=== PATIENT | female | born 1980 | race Caucasian/White ===

== ENCOUNTER 2022-09-16 21:19 | Outpatient (REF) | payer OTHER, SELFPAY ==
[2022-09-19 22:06] LABS: Age Gdln ACOG Testing Note (.); HPV Aptima Negative (Negative); IGP, Aptima HPV, rfx 16/18,45 Note (.)
== END 2022-09-16 21:20 | disposition home or self-care (01) ==
LOC: LAB 21:19
PROVIDERS: Visit Provider Obstetrics & Gynecology
DX: Z12.4 Encounter for screening for malignant neoplasm of cervix (principal); Z11.51 Encounter for screening for human papillomavirus (HPV)
CPT/HCPCS: 87624; G0145

== ENCOUNTER 2023-02-16 09:23 | Outpatient (OUT) | payer OTHER, SELFPAY ==
--- NOTE | 2023-02-16 09:26 | US_ITS ---
The [address] [address] Patient Name: KADI RODRIGUEZ MRN: [id number] date: 1980 Sex: F Assigned Patient Location: US Current Patient Location: Accession/Order Number: [id number] Exam Date: 02/16/2023 09:30 Report Date: 02/16/2023 10:39 At the request of: CIARA DAVIS Procedure: US pelvis w/ transvaginal EXAMINATION: US pelvis w/ transvaginal HISTORY: Pelvic Pain In Female R10.2 COMPARISON: No relevant comparison available. FINDINGS: Transabdominal and transvaginal images The uterus is surgically absent The right ovary measures 3.0 x 2.7 x 2.9 cm. Heterogeneous nodule measuring 1.3 x 1.3 x 0.9 cm. Normal color Doppler flow in the ovary. Left ovary measures 2.0 x 1.9 cm. Normal color Doppler flow. No free fluid US/US pelvis w/ transvaginal IMPRESSION: 1.3 cm complex right ovarian cyst Electronically authenticated by: KARISSA DIAZ Date: 02/16/2023 10:39
== END 2023-02-16 09:24 | disposition home or self-care (01) ==
LOC: US 09:23
PROVIDERS: Visit Provider Obstetrics & Gynecology
DX: R10.2 Pelvic and perineal pain (principal); N83.291 Other ovarian cyst, right side
CPT/HCPCS: 76830; 76856

== ENCOUNTER 2024-02-25 18:45 | Outpatient (REF) | payer OTHER, SELFPAY ==
--- OUTSIDE RECORDS SUMMARY | 2024-02-25 18:49 | XMS_ITS | CCD ---
Author Organization [facility] Care Team Providers Care Family Counselor Name Role Phone MAGED CANTU Admitting Unavailable MAGED CANTU Attending Unavailable SELF, REFERRED Primary Care Unavailable SELF, REFERRED Referring Unavailable DE Procedure Practitioner Unavailab le MAGED CANTU Surgeon Unavailable MEREDITH MALDONADO Admitting Unavailable MEREDITH MALDONADO Attending Unavailable MEREDITH MALDONADO Consulting Unavailable MISC, DR DENIS Primary Care Unavailable ABDOUL MARINO Consulting Unavailable MISC, DR DENIS Primary Care Unavailable RYAN, DR URBINA Attending Unavailable RYAN, DR URBINA Consulting Unavailable RYAN, DR URBINA Admitting Unavailable RYAN, DR URBINA Attending Unavailable RYAN, DR URBINA Admitting Unavailable MISC, DR DENIS Primary Care Unavailable RYAN, DR URBINA Admitting Unavailable RYAN, DR URBINA Attending Unavailable MISC, DR DENIS Primary Care Unavailable MISC, DR DENIS Primary Care Unavailable RYAN, DR URBINA Admitting Unavailable RYAN, DR URBINA Attending Unavailable KARASIK, DR PURCELL Consulting Unavailable RYAN, DR URBINA Consulting Unavailable RYAN, DR URBINA Procedure Practitioner Unavailab simone AGUBOSIROBIN Myers Consulting Unavailable ELIDA VARGAS Consulting Unavailable LYNN MARTINEZ Consulting Unavailable RYAN, DR URBINA Admitting Unavailable MISC, DR DENIS Primary Care Unavailable RYAN, DR URBINA Attending Unavailable RYAN, DR URBINA Consulting Unavailable KARASIK, DR PURCELL Admitting Unavailable KARASIK, DR PURCELL Attending Unavailable KARASIK, DR PURCELL Consulting Unavailable MISC, DR DENIS Primary Care Unavailable Avoca, DR Carlin Consulting Unavailable CIARA KOCH Attending Unavailable Problems Active Problems Problem Classification Problem Date Documented Da te Episodic/Chronic Menstrual disorders (3 sources) Dysmenorrhea, unspecified; Translations: [DYSMENORRHEA UNSPECIFIED] Onset: 06-07-2021 Chronic Other female genital disorders (1 source) Unspecified dyspareunia; Translations: [UNSPECIFIED DYSPAREUNIA] Onset: 07-02-2021 Chronic Other female genital disorders (1 source) Abnormal uterine and vaginal bleeding, unspecified; Translations: [ABNORMAL UTERINE VAGINAL BLEED UNS] Onset: 07-02-2021 Chronic Other female genital disorders (1 source) Postcoital and contact bleeding; Translations: [POSTCOITAL AND CONTACT BLEEDING] Onset: 07-02-2021 Chronic Other screening for suspected conditions (not mental disorders or infectious disease) (8 sources) Encounter for screening for nutritional disorder; Translations: [Encounter for screening mammogram for malignant neoplasm of breast] Onset: 06-03-2021 Episodic Residual codes; unclassified (1 source) Family history of malignant neoplasm of ovary; Translations: [FAM HX MALIGNANT NEOPLASM OVARY] Onset: 12-05-2021 Episodic Residual codes; unclassified (1 source) Family history of malignant neoplasm of other organs or systems; Translations: [FAM HX MALIG NEOPLASM OTH ORGN/SYS] Onset: 12-05-2021 Episodic Unclassified (1 source) CONTACT W/AND (SUSP) EXPOS COVID-19; Translations: [CONTACT W/AND (SUSP) EXPOS COVID-19] Onset: 06-07-2021 Past or Other Problems Problem Classification Problem Date Documented Date Episodic/Chronic Abdominal pain (5 sources) Pelvic and perineal pain; Translations: [PELVIC AND PERINEAL PAIN] Onset: 02-09-2021 Episodic Immunizations and screening for infectious disease (1 source) Encounter for screening for human papillomavirus (HPV); Translations: [ENC SCREENING HUMAN PAPILLOMAVIRUS] Onset: 06-05-2021 Episodic Mood disorders (1 source) Emotional lability; Translations: [EMOTIONAL LABILITY] Onset: 07-02-2021 Episodic Other aftercare (1 source) Other nursing home (current) drug therapy; Translations: [OTH INTERMEDIATE CURRENT DRUG THERAPY] Onset: 07-02-2021 Episodic Other female genital disorders (1 source) Other specified conditions associated with female genital organs and menstrual cycle; Translations: [OTH SPEC COND FE GEN ORG MENST CYCL] Onset: 07-02-2021 Episodic Results Test Name Value Interpretation Reference Range Facility MG MAMM SCREEN 3D LO CADon 12-03-2021 MG MAMM SCREEN 3D LO CAD Patient: JENNIFER SANDEE L. Exam Date: 12/03/2021 : 1980 Gender:F Ordering : DR JAZZY CERRATO . Admission #: [id number] Family : Order #: [id number] CLICK HERE TO VIEW EXAM RADIOLOGY REPORT PROCEDURE: MAMMOGRAM SCREENING 3D BILATERAL CAD COMPARISON: None. INDICATIONS: Screening mammography Calculator Name NCI Breast Cancer Risk Assessment Tool 5 Year Breast Cancer Risk 0.50% Lifetime Breast Cancer Risk 9.00% Personal Breast Cancer No Personal Ovarian Cancer No Treatments None Family Cancers Sister with ovarian cancer at age 30; Grandmother-maternal with unknown cancer at age 75; Grandfather-paternal with bone cancer at age 92. LOCATION: [facility] BREAST COMPOSITION: Heterogeneously dense,which may obscure small masses. FINDINGS: DIAGNOSTIC CATEGORY 1--NEGATIVE. Scattered benign-appearing lymph nodes are present. RIGHT BREAST: No significant suspicious finding. LEFT BREAST: No significant suspicious finding. RECOMMENDATIONS: ROUTINE MAMMOGRAM AND CLINICAL EVALUATION IN 12 MONTHS. PLEASE NOTE: A NORMAL MAMMOGRAM DOES NOT EXCLUDE THE POSSIBILITY OF BREAST CANCER. A CLINICALLY SUSPICIOUS PALPABLE LUMP SHOULD BE BIOPSIED. Dictated by: Tesfaye Whiting MD on 12/04/2021 at 07:44 Approved by: Tesfaye Whiting MD on 12/04/2021 at 07:45 Normal [facility] CBC AUTO DIFFon 06-09-2021 BASO # 0.1 103/ul Normal 0.0-0.1 [facility] Comment on above: Performed By: #### B , CREA #### [facility] [address] [address] [address] Milind De Paz Basophils/100 WBC (Bld) 0.7 % Normal 0.2-2.0 [facility] Comment on above: Performed By: #### B UN, CREA #### [facility] [address] [address] [address] Milind De Paz EO # 0.3 103/ul Normal 0.0-0.7 [facility] Comment on above: Performed By: #### B UN, CREA #### [facility] [address] [address] [address] Milind De Paz Eosinophils/100 WBC (Bld) 3.6 % Normal 0.9-7.0 [facility] Comment on above: Performed By: #### B UN, CREA #### [facility] [address] [place] [address] Dr. Milind De Paz Erythrocyte distribution width (RBC) [Ratio] 12.1 % Normal 11.0-15.0 [facility] Comment on above: Performed By: #### B UN, CREA #### [facility] [address] [place] [address] Dr. Milind De Paz Hematocrit (Bld) [Volume fraction] 31.0 % Critically low 36.0-48.0 [facility] Comment on above: Performed By: #### B UN, CREA #### [facility] [address] [place] [address] Dr. Milind De Paz Hemoglobin (Bld) [Mass/Vol] 10.0 g/dL Critically low 12.0-16.0 [facility] Comment on above: Performed By: #### B UN, CREA #### [facility] [address] [place] [address] Dr. Milind De Paz IG # 0.03 10e3/ul Normal 0.00-0.03 [facility] Comment on above: Performed By: #### B UN, CREA #### [facility] [address] [place] [address] Dr. Milind De Paz IG % 0.3 % Normal 0.0-0.5 [facility] Comment on above: Performed By: #### B UN, CREA #### [facility] [address] [place] [address] Dr. Milind De Paz LYMPH # 2.7 103/ul Normal 1.2-3.8 [facility] Comment on above: Performed By: #### B UN, CREA #### [facility] [address] [place] [address] Dr. Milind De Paz Lymphocytes/100 WBC (Bld) 31.0 % Normal 20.5-60.0 [facility] Comment on above: Performed By: #### B UN, CREA #### [facility] [address] [place] [address] Dr. Milind De Paz MANUAL DIFF REQ NO Normal [facility] Comment on above: Performed By: #### B UN, CREA #### [facility] [address] [place] [address] Dr. Milind De Paz MCH (RBC) [Entitic mass] 30.7 pg Normal 26.7-34.0 [facility] Comment on above: Performed By: #### B UN, CREA #### [facility] [address] [place] [address] Dr. Milind De Paz MCHC (RBC) [Mass/Vol] 32.3 g/dL Normal 29.9-35.2 [facility] Comment on above: Performed By: #### B UN, CREA #### [facility] [address] [place] [address] Dr. Milind De Paz MCV (RBC) [Entitic vol] 95.1 fL Normal 81.0-99.0 [facility] Comment on above: Performed By: #### B UN, CREA #### [facility] [address] [place] [address] Dr. Milind De Paz MONO # 0.9 103/ul Critically high 0.3-0.8 [facility] Comment on above: Performed By: #### B UN, CREA #### [facility] [address] [place] [address] Dr. Milind De Paz Monocytes/100 WBC (Bld) 10.3 % Normal 1.7-12.0 [facility] Comment on above: Performed By: #### B UN, CREA #### [facility] [address] [place] [address] Dr. Milind De Paz NEUT # 4.7 103/ul Normal 1.4-6.5 [facility] Comment on above: Performed By: #### B UN, CREA #### [facility] [address] [place] [address] Dr. Milind De Paz Neutrophils/100 WBC (Bld) 54.1 % Normal 43.0-75.0 [facility] Comment on above: Performed By: #### B UN, CREA #### [facility] [address] [place] [address] Dr. Milind De Paz Platelet mean volume (Bld) [Entitic vol] 10.6 fL Normal 9.5-13.5 [facility] Comment on above: Performed By: #### B UN, CREA #### [facility] [address] [place] [address] Dr. Milind De Paz PLT 195 103/ul Normal 150-450 [facility] Comment on above: Performed By: #### B UN, CREA #### [facility] [address] [place] [address] Dr. Milind De Paz RBC 3.26 106/ul Critically low 4.20-5.40 [facility] Comment on above: Performed By: #### B UN, CREA #### [facility] [address] [place] [address] Dr. Milind De Paz WBC 8.7 103/ul Normal 4.0-11.0 [facility] Comment on above: Performed By: #### B UN, CREA #### [facility] [address] [place] [address] Dr. Milind De Paz BUNon 06-08-2021 Urea nitrogen [Mass/Vol] 9.0 mg/dL Normal 7.0-18.0 [facility] Comment on above: Performed By: #### B UN, CREA #### [facility] [address] [place] [address] Dr. Milind De Paz CBC AUTO DIFFon 06-08-2021 BASO # 0.0 103/ul Normal 0.0-0.1 [facility] Comment on above: Performed By: #### C BC #### [facility] [address] [place] [address] Dr. Milind De Paz Basophils/100 WBC (Bld) 0.2 % Normal 0.2-2.0 [facility] Comment on above: Performed By: #### C BC #### [facility] [address] [place] [address] Dr. Milind De Paz EO # 0.0 103/ul Normal 0.0-0.7 [facility] Comment on above: Performed By: #### C BC #### [facility] [address] [place] [address] Dr. Milind De Paz Eosinophils/100 WBC (Bld) 0.1 % Critically low 0.9-7.0 [facility] Comment on above: Performed By: #### C BC #### [facility] [address] [place] [address] Dr. Milind De Paz Erythrocyte distribution width (RBC) [Ratio] 11.8 % Normal 11.0-15.0 [facility] Comment on above: Performed By: #### C BC #### [facility] [address] [place] [address] Dr. Milind De Paz Hematocrit (Bld) [Volume fraction] 31.9 % Critically low 36.0-48.0 [facility] Comment on above: Performed By: #### C BC #### [facility] [address] [place] [address] Dr. Milind De Paz Hemoglobin (Bld) [Mass/Vol] 10.7 g/dL Critically low 12.0-16.0 [facility] Comment on above: Performed By: #### C BC #### [facility] [address] [place] [address] Dr. Milind De Paz IG # 0.05 10e3/ul Critically high 0.00-0.03 [facility] Comment on above: Performed By: #### C BC #### [facility] [address] [place] [address] Dr. Milind De Paz IG % 0.3 % Normal 0.0-0.5 [facility] Comment on above: Performed By: #### C BC #### [facility] [address] [place] [address] Dr. Milind De Paz LYMPH # 1.4 103/ul Normal 1.2-3.8 [facility] Comment on above: Performed By: #### C BC #### [facility] [address] [place] [address] Dr. Milind De Paz Lymphocytes/100 WBC (Bld) 9.7 % Critically low 20.5-60.0 [facility] Comment on above: Performed By: #### C BC #### [facility] [address] [place] [address] Dr. Milind De Paz MANUAL DIFF REQ NO Normal [facility] Comment on above: Performed By: #### C BC #### [facility] [address] [place] [address] Dr. Milind De Paz MCH (RBC) [Entitic mass] 30.6 pg Normal 26.7-34.0 [facility] Comment on above: Performed By: #### C BC #### [facility] [address] [place] [address] Dr. Milind De Paz MCHC (RBC) [Mass/Vol] 33.5 g/dL Normal 29.9-35.2 [facility] Comment on above: Performed By: #### C BC #### [facility] [address] [place] [address] Dr. Milind De Paz MCV (RBC) [Entitic vol] 91.1 fL Normal 81.0-99.0 [facility] Comment on above: Performed By: #### C BC #### [facility] [address] [place] [address] Dr. Milind De Paz MONO # 1.2 103/ul Critically high 0.3-0.8 [facility] Comment on above: Performed By: #### C BC #### [facility] [address] [place] [address] Dr. Milind De Paz Monocytes/100 WBC (Bld) 8.2 % Normal 1.7-12.0 [facility] Comment on above: Performed By: #### C BC #### [facility] [address] [place] [address] Dr. Milind De Paz NEUT # 12.2 103/ul Critically high 1.4-6.5 [facility] Comment on above: Performed By: #### C BC #### [facility] [address] [place] [address] Dr. Mliind De Paz Neutrophils/100 WBC (Bld) 81.5 % Critically high 43.0-75.0 [facility] Comment on above: Performed By: #### C BC #### [facility] [address] [place] [address] Dr. Milind De Paz Platelet mean volume (Bld) [Entitic vol] 10.5 fL Normal 9.5-13.5 [facility] Comment on above: Performed By: #### C BC #### [facility] [address] [place] [address] Dr. Milind De Paz PLT 220 103/ul Normal 150-450 [facility] Comment on above: Performed By: #### C BC #### [facility] [address] [place] [address] Dr. Milind De Paz RBC 3.50 106/ul Critically low 4.20-5.40 [facility] Comment on above: Performed By: #### C BC #### [facility] [address] [place] [address] Dr. Milind De Paz WBC 14.9 103/ul Critically high 4.0-11.0 [facility] Comment on above: Performed By: #### C BC #### [facility] [address] [place] [address] Dr. Milind De Paz CREATININEon 06-08-2021 Creatinine [Mass/Vol] 0.61 mg/dL Normal 0.52-1.04 [facility] Comment on above: Performed By: #### B JULIA, CREA #### [facility] [address] [place] [address] Dr. Milind De Paz EGFR-AF DUTCH >60 Normal >=60 [facility] Comment on above: Performed By: #### B UN, CREA #### [facility] [address] [place] [address] Dr. Milind De Paz EGFR-NON AF DUTCH >60 Normal >=60 [facility] Comment on above: Performed By: #### B UN, CREA #### [facility] [address] [place] [address] Dr. Milind De Paz CBC AUTO DIFFon 06-07-2021 BASO # 0.1 103/ul Normal 0.0-0.1 [facility] Comment on above: Performed By: #### C BC #### [facility] [address] [address] [address] Milind De Paz Basophils/100 WBC (Bld) 0.8 % Normal 0.2-2.0 [facility] Comment on above: Performed By: #### C BC #### [facility] [address] [place] [address] Dr. Milind De Paz EO # 0.2 103/ul Normal 0.0-0.7 [facility] Comment on above: Performed By: #### C BC #### [facility] [address] [place] [address] Dr. Milind De Paz Eosinophils/100 WBC (Bld) 3.0 % Normal 0.9-7.0 [facility] Comment on above: Performed By: #### C BC #### [facility] [address] [place] [address] Dr. Milind De Paz Erythrocyte distribution width (RBC) [Ratio] 11.8 % Normal 11.0-15.0 [facility] Comment on above: Performed By: #### C BC #### [facility] [address] [place] [address] Dr. Milind De Paz Hematocrit (Bld) [Volume fraction] 36.6 % Normal 36.0-48.0 [facility] Comment on above: Performed By: #### C BC #### [facility] [address] [place] [address] Dr. Milind De Paz Hemoglobin (Bld) [Mass/Vol] 12.3 g/dL Normal 12.0-16.0 [facility] Comment on above: Performed By: #### C BC #### [facility] [address] [place] [address] Dr. Milind De Paz IG # 0.01 10e3/ul Normal 0.00-0.03 [facility] Comment on above: Performed By: #### C BC #### [facility] [address] [place] [address] Dr. Milind De Paz IG % 0.1 % Normal 0.0-0.5 [facility] Comment on above: Performed By: #### C BC #### [facility] [address] [place] [address] Dr. Milind De Paz LYMPH # 1.9 103/ul Normal 1.2-3.8 [facility] Comment on above: Performed By: #### C BC #### [facility] [address] [place] [address] Dr. Milind De Paz Lymphocytes/100 WBC (Bld) 25.3 % Normal 20.5-60.0 [facility] Comment on above: Performed By: #### C BC #### [facility] [address] [place] [address] Dr. Milind De Paz MANUAL DIFF REQ NO Normal [facility] Comment on above: Performed By: #### C BC #### [facility] [address] [place] [address] Dr. Milind De Paz MCH (RBC) [Entitic mass] 31.0 pg Normal 26.7-34.0 [facility] Comment on above: Performed By: #### C BC #### [facility] [address] [place] [address] Dr. Milind De Paz MCHC (RBC) [Mass/Vol] 33.6 g/dL Normal 29.9-35.2 [facility] Comment on above: Performed By: #### C BC #### [facility] [address] [place] [address] Dr. Milind De Paz MCV (RBC) [Entitic vol] 92.2 fL Normal 81.0-99.0 [facility] Comment on above: Performed By: #### C BC #### [facility] [address] [place] [address] Dr. Milind De Paz MONO # 0.5 103/ul Normal 0.3-0.8 [facility] Comment on above: Performed By: #### C BC #### [facility] [address] [place] [address] Dr. Milind De Paz Monocytes/100 WBC (Bld) 6.8 % Normal 1.7-12.0 [facility] Comment on above: Performed By: #### C BC #### [facility] [address] [place] [address] Dr. Milind De Paz NEUT # 4.9 103/ul Normal 1.4-6.5 [facility] Comment on above: Performed By: #### C BC #### [facility] [address] [place] [address] Dr. Milind De Paz Neutrophils/100 WBC (Bld) 64.0 % Normal 43.0-75.0 [facility] Comment on above: Performed By: #### C BC #### [facility] [address] [place] [address] Dr. Milind De Paz Platelet mean volume (Bld) [Entitic vol] 10.2 fL Normal 9.5-13.5 [facility] Comment on above: Performed By: #### C BC #### [facility] [address] [place] [address] Dr. Milind De Paz PLT 257 103/ul Normal 150-450 [facility] Comment on above: Performed By: #### C BC #### [facility] [address] [place] [address] Dr. Milind De Paz RBC 3.97 106/ul Critically low 4.20-5.40 [facility] Comment on above: Performed By: #### C BC #### [facility] [address] [place] [address] Dr. Milind De Paz WBC 7.6 103/ul Normal 4.0-11.0 [facility] Comment on above: Performed By: #### C BC #### [facility] [address] [place] [address] Dr. Milind De Paz PREG QUANT HCGon 06-07-2021 HCG QUANT <1 Normal [facility] Comment on above: Performed By: #### B UN, CREA #### [facility] [address] [place] [address] Dr. Milind De Paz HCG RANGE SEE BELOW Normal [facility] Comment on above: Result Comment: 5-50 0-1 WEEK 40-300 1-2 WEEKS 100-1,000 2-3 WEEKS 500-6,000 3-4 WEEKS 5,000-200,000 1-2 MONTHS 10,000-100,000 2-3 MONTHS 3,000-50,000 2ND TRIMESTER 1,000-50,000 3RD TRIMESTER Performed By: #### B UN, CREA #### [facility] [address] [address] [address] Milind De Paz TYPE AND SCREENon 06-07-2021 TYPE AND SCREEN Negative Normal [facility] Comment on above: Performed By: #### B UN, CREA #### [facility] [address] [address] [address] Milind De Paz PAP ACOG PANEL 2: 30 to 65on 06-06-2021 . . Normal [facility] Comment on above: Result Comment: Perf ormed at: WB Performed By: #### B UN, CREA #### [facility] [address] [place] [address] Dr. Milind De Paz Age Gdln ACOG Testing - [facility] Comment on above: Performed By: #### B UN, CREA #### [facility] [address] [place] [address] Dr. Milind De Paz DIAGNOSIS: Comment Normal [facility] Comment on above: Result Comment: NEGA TIVE FOR INTRAEPITHELIAL LESION OR MALIGNANCY. Performed at: WB Performed By: #### B UN, CREA #### [facility] [address] [place] [address] Dr. Milind De Paz HPV Aptima Negative Normal Negative [facility] Comment on above: Result Comment: This nucleic acid amplification test detects fourteen high-risk HPV types (16,18,31,33,35,39,45,51,52,56,58,59,66,68) without differentiation. Performed at: =G Performed By: #### B UN, CREA #### [facility] [address] [place] [address] Dr. Milind De Paz Methodology: Comment Normal [facility] Comment on above: Result Comment: This liquid based ThinPrep(R) pap test was screened with the use of an image guided system. Performed at: WB Performed By: #### B UN, CREA #### [facility] [address] [place] [address] Dr. Milind De Paz Note: Comment Normal [facility] Comment on above: Result Comment: The Pap smear is a screening test designed to aid in the detection of premalignant and malignant conditions of the uterine cervix. It is not a diagnostic procedure and should not be used as the sole means of detecting cervical cancer. Both false-positive and false-negative reports do occur. . Performed at: WB Performed By: #### B UN, CREA #### [facility] [address] [address] [address] Milind De Paz Performed by: Comment Normal [facility] Comment on above: Result Comment: Magda Staton, Roofing Sales Representative (ASCP) Performed at: WB Performed By: #### B UN, CREA #### [facility] [address] [address] [address] Milind De Paz Specimen adequacy: Comment Normal [facility] Comment on above: Result Comment: Sati sfactory for evaluation. Endocervical and/or squamous metaplastic cells (endocervical component) are present. Performed at: WB Performed By: #### B UN, CREA #### [facility] [address] [address] [address] Milind De Paz [facility]08 SARS-CoV-2 (COVID-19) RNA FRIDA+probe Ql (Unsp spec) Not detected Normal NOT DETECTED [facility] Comment on above: Result Comment: This test is not yet approved or cleared by the [place] FDA. When there are no FDA-approved or cleared tests available, and other criteria are met, FDA can make tests available under an emergency access mechanism called an Emergency Use Authorization (EUA). The EUA for this test is supported by the [employer] of Health and Human Service's (HHS's) declaration that circumstances exist to justify the emergency use of in vitro diagnostics for the detection and/or diagnosis of the virus that causes COVID-19. This EUA will remain in effect (meaning this test can be used) for the duration of the COVID-19 declaration justifying emergency of IVDs, unless it is terminated or revoked by FDA (after which the test may no longer be used). When diagnostic testing is negative, the possibility of a false negative should be considered in the context of a patient's recent exposures and the presence of clinical signs and symptoms consistent with SARS-CoV-2. Performed By: #### C VDTB #### [facility] [address] [place] [address] Dr. Milind De Paz TYPE AND SCREENon 06-04-2021 TYPE AND SCREEN Negative Normal [facility] Comment on above: Performed By: #### B UN, CREA #### [facility] [address] [place] [address] Dr. Milind De Paz CHLAMYDIA/GONOCOCCUS FRIDA ( AB/URINE/PAPon 02-12-2021 Chlamydia trachomatis, FRIDA Negative Normal Negative [facility] Comment on above: Performed By: #### B UN, CREA #### [facility] [address] [place] [address] Dr. Milind De Paz Neisseria gonorrhoeae, FRIDA Negative Normal Negative [facility] Comment on above: Performed By: #### B UN, CREA #### [facility] [address] [place] [address] Dr. Milind De Paz CBC AUTO DIFFon 02-09-2021 BASO # 0.1 103/ul Normal 0.0-0.1 [facility] Comment on above: Performed By: #### B UN, CREA #### [facility] [address] [place] [address] Dr. Milind De Paz Basophils/100 WBC (Bld) 0.9 % Normal 0.2-2.0 [facility] Comment on above: Performed By: #### B UN, CREA #### [facility] [address] [place] [address] Dr. Milind De Paz EO # 0.2 103/ul Normal 0.0-0.7 [facility] Comment on above: Performed By: #### B UN, CREA #### [facility] [address] [place] [address] Dr. Milind De Paz Eosinophils/100 WBC (Bld) 2.6 % Normal 0.9-7.0 [facility] Comment on above: Performed By: #### B UN, CREA #### [facility] [address] [place] [address] Dr. Milind De Paz Erythrocyte distribution width (RBC) [Ratio] 11.6 % Normal 11.0-15.0 [facility] Comment on above: Performed By: #### B UN, CREA #### [facility] [address] [place] [address] Dr. Milind De Paz Hematocrit (Bld) [Volume fraction] 35.9 % Critically low 36.0-48.0 [facility] Comment on above: Performed By: #### B UN, CREA #### [facility] [address] [place] [address] Dr. Milind De Paz Hemoglobin (Bld) [Mass/Vol] 11.8 g/dL Critically low 12.0-16.0 [facility] Comment on above: Performed By: #### B UN, CREA #### [facility] [address] [place] [address] Dr. Milind De Paz IG # 0.01 10e3/ul Normal 0.00-0.03 [facility] Comment on above: Performed By: #### B UN, CREA #### [facility] [address] [place] [address] Dr. Milind De Paz IG % 0.1 % Normal 0.0-0.5 [facility] Comment on above: Performed By: #### B UN, CREA #### [facility] [address] [place] [address] Dr. Milind De Paz LYMPH # 2.8 103/ul Normal 1.2-3.8 [facility] Comment on above: Performed By: #### B UN, CREA #### [facility] [address] [place] [address] Dr. Milind De Paz Lymphocytes/100 WBC (Bld) 35.9 % Normal 20.5-60.0 [facility] Comment on above: Performed By: #### B UN, CREA #### [facility] [address] [place] [address] Dr. Milind De Paz MANUAL DIFF REQ NO Normal [facility] Comment on above: Performed By: #### B UN, CREA #### [facility] [address] [place] [address] Dr. Milind De Paz MCH (RBC) [Entitic mass] 30.3 pg Normal 26.7-34.0 [facility] Comment on above: Performed By: #### B UN, CREA #### [facility] [address] [place] [address] Dr. Milind De Paz MCHC (RBC) [Mass/Vol] 32.9 g/dL Normal 29.9-35.2 [facility] Comment on above: Performed By: #### B UN, CREA #### [facility] [address] [place] [address] Dr. Milind De Paz MCV (RBC) [Entitic vol] 92.1 fL Normal 81.0-99.0 [facility] Comment on above: Performed By: #### B UN, CREA #### [facility] [address] [place] [address] Dr. Milind De Paz MONO # 0.8 103/ul Normal 0.3-0.8 [facility] Comment on above: Performed By: #### B UN, CREA #### [facility] [address] [place] [address] Dr. Milind De Paz Monocytes/100 WBC (Bld) 10.1 % Normal 1.7-12.0 [facility] Comment on above: Performed By: #### B UN, CREA #### [facility] [address] [place] [address] Dr. Milind De Paz NEUT # 3.9 103/ul Normal 1.4-6.5 [facility] Comment on above: Performed By: #### B UN, CREA #### [facility] [address] [place] [address] Dr. Milind De Paz Neutrophils/100 WBC (Bld) 50.4 % Normal 43.0-75.0 [facility] Comment on above: Performed By: #### B UN, CREA #### [facility] [address] [place] [address] Dr. Milind De Paz Platelet mean volume (Bld) [Entitic vol] 10.5 fL Normal 9.5-13.5 [facility] Comment on above: Performed By: #### B UN, CREA #### [facility] [address] [address] [address] Milind De Paz PLT 273 103/ul Normal 150-450 [facility] Comment on above: Performed By: #### B UN, CREA #### [facility] [address] [address] [address] Milind De Paz RBC 3.90 106/ul Critically low 4.20-5.40 [facility] Comment on above: Performed By: #### B UN, CREA #### [facility] [address] [address] [address] Milind De Paz WBC 7.8 103/ul Normal 4.0-11.0 [facility] Comment on above: Performed By: #### B UN, CREA #### [facility] [address] [address] [address] ABD/PELV W CONon 02-10-[address] ABD/PELV W CON EXAM: CT ABD/PELV W CON 02/09/2021 1:58 AM EST [id number] CLINICAL STATEMENT: UNSPECIFIED ABDOMINAL PAIN COMPARISON: 06/14/2020 TECHNIQUE: Helically acquired images were obtained of the abdomen and pelvis following 100 cc of Omnipaque 300 IV contrast. No oral contrast was administered. Dose reduction techniques were achieved by using automated exposure control and/or adjustment of mA and/or kV according to patient size and/or use of iterative reconstruction technique. AEC is utilized. 2-D reconstructed images are provided. FINDINGS: Multiple hepatic lobe hemangioma on the right measures 3 cm and 2.7 cm. Contracted gallbladder. The upper abdominal solid organs are unremarkable. There is no bowel obstruction or free air. There is no ascites. There is no evidence of aortic aneurysm or dissection. The celiac artery, superior mesenteric artery, and superior mesenteric vein are grossly patent. There is no retroperitoneal adenopathy. Bilateral gonadal vein coil streak artifact. There is no appendicitis or diverticulitis. There are no pelvic masses or loculated fluid collections. 2.5 cm right renal cortical cyst. The uterus and bladder unremarkable. The lung bases are clear. There are no destructive bone lesions identified. IMPRESSION: No acute abnormality. Multiple hepatic lobe hemangioma on the right measures 3 cm and 2.7 cm. FOLLOW-UP: Follow-up as clinically indicated. Electronically authenticated by: ABDOUL MARINO Date: 2021-02-09 03:16 Normal [facility] CULTURE VAG/CERVIXon 021 CULTURE VAG/CERVIX Culture Observations : NORMAL VAGINAL DAVID Normal [facility] Comment on above: Performed By: #### B JULIA CRERomina #### [facility] [address] [place] [address] Dr. Milind De Paz ER URINE PROFILEon 1 Bilirubin Ql (U) Negative Normal NEGATIVE [facility] Comment on above: Performed By: #### E RUR PREGU, UMICRO #### [facility] [address] [place] [address] Dr. Milind De Paz Clarity (U) CLEAR Normal CLEAR [facility] Comment on above: Performed By: #### Ana Luisa RUR PREGU, UMICRO #### [facility] [address] [place] [address] Dr. Milind De Paz Color (U) YELLOW Normal YELLOW [facility] Comment on above: Performed By: #### Ana Luisa RUR PREGU, UMICRO #### [facility] [address] [place] [address] Dr. Milind DOWLING A micrscopic examination will be performed if indicated. Normal [facility] Comment on above: Performed By: #### E RUR PREGU, UMICRO #### [facility] [address] [place] [address] Dr. Milind De Paz Glucose Ql (U) Negative Normal NEGATIVE [facility] Comment on above: Performed By: #### E RUR, PREGU, UMICRO #### [facility] [address] [place] [address] Dr. Milind De Paz Hemoglobin Ql (U) MODERATE Abnormal NEGATIVE [facility] Comment on above: Performed By: #### E RUR, PREGU, UMICRO #### [facility] [address] [place] [address] Dr. Milind De Paz Ketones Ql (U) TRACE Abnormal NEGATIVE [facility] Comment on above: Performed By: #### E RUR, PREGU, UMICRO #### [facility] [address] [place] [address] Dr. Milind De Paz LEUKOCYTES Negative Normal NEGATIVE [facility] Comment on above: Performed By: #### E RUR, PREGU, UMICRO #### [facility] [address] [address] [address] Milind De Paz Nitrite Ql (U) Negative Normal NEGATIVE [facility] Comment on above: Performed By: #### E RUR, PREGU, UMICRO #### [facility] [address] [place] [address] Dr. Milind De Paz pH (U) 6.0 [pH] Normal 5-9 [facility] Comment on above: Performed By: #### E RUR, PREGU, UMICRO #### [facility] [address] [place] [address] Dr. Milind De Paz SPEC GRAVITY 1.025 Normal 1.005-<=1.025 [facility] Comment on above: Performed By: #### E RUR, PREGU, UMICRO #### [facility] [address] [place] [address] Dr. Milind De Paz UA PROTEIN Negative Normal NEGATIVE/ TRACE [facility] Comment on above: Performed By: #### E RUR, PREGU, UMICRO #### [facility] [address] [place] [address] Dr. Milind De Paz UR MICRO IND INDICATED Normal [facility] Comment on above: Performed By: #### E RUR, PREGU, UMICRO #### [facility] [address] [place] [address] Dr. Milind De Paz Urobilinogen Qn (U) 0.2 {Lilia'U}/dL Normal 0.2 - 1.0 [facility] Comment on above: Performed By: #### E RUR, PREGU, UMICRO #### [facility] [address] [place] [address] Dr. Milind De Paz PREG QUANT HCGon 02-09-2021 HCG QUANT <1 Normal [facility] Comment on above: Performed By: #### B JULIA, CREA #### [facility] [address] [place] [address] Dr. Milind De Paz HCG RANGE SEE BELOW Normal [facility] Comment on above: Result Comment: 5-50 0-1 WEEK 40-300 1-2 WEEKS 100-1,000 2-3 WEEKS 500-6,000 3-4 WEEKS 5,000-200,000 1-2 MONTHS 10,000-100,000 2-3 MONTHS 3,000-50,000 2ND TRIMESTER 1,000-50,000 3RD TRIMESTER Performed By: #### B JULIA, CREA #### [facility] [address] [place] [address] Dr. Milind De Paz URon 02-09-2021 , QUAL Negative Normal NEGATIVE [facility] Comment on above: Performed By: #### E RUR, PREGU, UMICRO #### [facility] [address] [place] [address] Dr. Milind De Paz PROF CHEM 8 (BAS METB)on Anion gap [Moles/Vol] 10.9 mmol/L Normal [facility] Comment on above: Performed By: #### B MP #### [facility] [address] [place] [address] Dr. Milind De Paz Calcium [Mass/Vol] 9.1 mg/dL Normal 8.4-10.2 [facility] Comment on above: Performed By: #### B MP #### [facility] [address] [place] [address] Dr. Milind De Paz Chloride [Moles/Vol] 102 mmol/L Normal 98-107 [facility] Comment on above: Performed By: #### B MP #### [facility] [address] [place] [address] Dr. Milind De Paz CO2 [Moles/Vol] 29.7 mmol/L Normal 22.0-30.0 [facility] Comment on above: Performed By: #### B MP #### [facility] [address] [address] [address] Milind De Paz Creatinine [Mass/Vol] 0.81 mg/dL Normal 0.52-1.04 [facility] Comment on above: Performed By: #### B MP #### [facility] [address] [place] [address] Dr. Milind De Paz EGFR-AF DUTCH >60 Normal >=60 [facility] Comment on above: Performed By: #### B MP #### [facility] [address] [address] [address] Milind De Paz EGFR-NON AF DUTCH >60 Normal >=60 [facility] Comment on above: Performed By: #### B MP #### [facility] [address] [place] [address] Dr. Milind De Paz Glucose [Mass/Vol] 89 mg/dL Normal 74-106 [facility] Comment on above: Performed By: #### B MP #### [facility] [address] [place] [address] Dr. Milind De Paz Potassium [Moles/Vol] 3.6 mmol/L Normal 3.4-5.0 [facility] Comment on above: Performed By: #### B MP #### [facility] [address] [place] [address] Dr. Milind De Paz Sodium [Moles/Vol] 139 mmol/L Normal 137-145 [facility] Comment on above: Performed By: #### B MP #### [facility] [address] [place] [address] Dr. Milind De Paz Urea nitrogen [Mass/Vol] 16.0 mg/dL Normal 7.0-17.0 [facility] Comment on above: Performed By: #### B MP #### [facility] [address] [place] [address] Dr. Milind De Paz Urea nitrogen/Creatinin e [Mass ratio] 19.8 mg/mg Normal [facility] Comment on above: Performed By: #### B MP #### [facility] [address] [place] [address] Dr. Milind De Paz URINE MICROSCOPIC ONLYon BACTERIA TRACE Abnormal NONE SEEN [facility] Comment on above: Performed By: #### E RUR, PREGU, UMICRO #### [facility] [address] [place] [address] Dr. Milind De Paz Bacteria identified Cx Nom (U) NOT INDICATED Normal [facility] Comment on above: Performed By: #### E RUR, PREGU, UMICRO #### [facility] [address] [place] [address] Dr. Milind De Paz CAST NONE SEEN Normal NONE SEEN [facility] Comment on above: Performed By: #### E RUR, PREGU, UMICRO #### [facility] [address] [place] [address] Dr. Milind De Paz Crystals LM Nom (Urine sed) NONE SEEN Normal NONE SEEN [facility] Comment on above: Performed By: #### E RUR, PREGU, UMICRO #### [facility] [address] [place] [address] Dr. Milind De Paz Epithelial cells LM Ql (Urine sed) FEW Abnormal NONE SEEN /RARE [facility] Comment on above: Performed By: #### E RUR, PREGU, UMICRO #### [facility] [address] [place] [address] Dr. Milind De Paz MUCOUS SMALL Abnormal NONE SEEN [facility] Comment on above: Performed By: #### E RUR, PREGU, UMICRO #### [facility] [address] [place] [address] Dr. Milind De Paz RBC 0-2 Normal 0-2 [facility] Comment on above: Performed By: #### E RUR, PREGU, UMICRO #### [facility] [address] [place] [address] Dr. Milind De Paz WBC 0-2 Abnormal NONE SEEN [facility] Comment on above: Performed By: #### E RUR, PREGU, UMICRO #### [facility] [address] [place] [address] Dr. Mliind De Paz WET PREPon 02-09-2021 CLUE CELLS NONE SEEN Normal NONE SEEN [facility] Comment on above: Performed By: #### W P #### [facility] [address] [address] [address] Milind De Paz FUNGAL ELEMENTS NONE SEEN Normal NONE SEEN [facility] Comment on above: Performed By: #### W P #### [facility] [address] [address] [address] Milind De Paz RBC -WET PREP MODERATE Abnormal NONE SEEN [facility] Comment on above: Performed By: #### W P #### [facility] [address] [address] [address] Milind De Paz TRICHOMONAS NONE SEEN Normal NONE SEEN [facility] Comment on above: Performed By: #### W P #### [facility] [address] [place] [address] Dr. Milind De Paz WBC- WET PREP FEW Abnormal NONE SEEN [facility] Comment on above: Performed By: #### W P #### [facility] [address] [place] [address] Dr. Milind De Paz WET PREP BACTERIA FEW Abnormal NONE SEEN [facility] Comment on above: Performed By: #### W P #### [facility] [address] [place] [address] Dr. Milind De Paz Operative Reporton Operative Report MR#: [id number] S [facility] Pt. Name: Sandee Rodriguez Room #: 0C Discharge Date: Birthdate: 1980 OPERATIVE REPORT DATE OF SURGERY: 09/17/2020 SURGEON: Maged Cantu M.D. PREOPERATIVE DIAGNOSIS: Pelvic congestion syndrome. POSTOPERATIVE DIAGNOSIS: Pelvic congestion syndrome. PROCEDURES DONE: Access to the right common femoral vein under ultrasound guidance. Venogram of the inferior vena cava. Selective catheterization of the left gonadal vein. Sclerotherapy of the pelvic veins with the Sotradecol 1% foam. The embolization of the left gonadal vein with plug placement in the left gonadal vein. Access to the right internal jugular vein. Selective catheterization of the right gonadal vein. Embolization of the right gonadal vein. ANESTHESIA: General anesthesia. COMPLICATIONS: No complication. TOTAL AMOUNT OF CONTRAST USED: 95 mL. FLUORO TIME: 29 minutes. RADIATION DOSE: 689 mGy. INDICATION: This is a 40-year-old female patient with abdominal pain and pelvic pain. She has typical symptoms of pelvic congestion syndrome. Evaluation revealed the presence of multiple veins in the pelvis and possibility of pelvic congestion. DESCRIPTION OF PROCEDURE: The patient was put in a supine position. She requested to be on general anesthesia. Ultrasound guidance was used to access the right common femoral vein. Micro sheath was inserted then 6-Chadian sheath. After that, a C1 catheter was placed in the inferior vena cava venogram was done followed by catheterization of the left renal vein and then the left gonadal vein. A venogram was done for the left side. After that a wire was placed in the catheter and then the sheath and the C1 catheter were exchanged to a 6-Chadian Mao sheath with the tip of the sheath in the gonadal vein. After that, a Rincon catheter was placed in the pelvic vein just before multiple branching and while the patient was on injection of Sotradecol 1% the used in the form of a foam therapy with 1:2 ratio. A total of 5 mL were injected since also the Rincon catheter was moved to a more proximal area. After that, coils were placed in the gonadal vein on the left side. A total of 4 coils of 18-14-10 were deployed in the gonadal vein followed by placement of an Amplatzer plug 12 x 9. Then, a venogram was done showing satisfactory result. After that, the catheter and sheath were pulled out and exchanged to a 6-Chadian sheath in the right groin. Multiple attempts were made to selectively catheterize the right gonadal vein with no success. Because of this, access was made to the right internal jugular vein, multipurpose catheter, which was placed with no difficulty into the gonadal vein on the right side that comes very close to the renal vein. Venogram was done, which showed very large veins and multiple branching as well as varicosities in the right side of the pelvis coming from the vein on the right side. Two interlock coils were placed, the first one is 12 x 40 and the second one is 15 x 40. Then, a venogram was done, which showed complete occlusion blood flow in the gonadal vein just proximal to the multiple branches. After that, the sheath was pulled out. A venogram was done with no abnormality. Sheaths were removed, pressure applied with no complication. FINDINGS: Both gonadal veins are very large in size. There is multiple varicosities in the pelvis especially from the left side and there are so large numbers and tortuosity. Successful sclerotherapy and embolization done for the pelvic vein as well as for both gonadal veins. At the end of the procedure, there was no flow within the gonadal vein and the pelvic veins. No complication during the procedure. RECOMMENDATION: The patient will continue on whatever medication she is on. No special medicine for this embolization. She will be seen as a followup in the office in 3-4 weeks. Electronically Signed by: Maged Cantu M.D. 09/22/2020 11:14 A Maged Cantu M.D. Date Dict: 09/17/2020/03:27 P/Maged Cantu M.D. Date Trans: 09/18/2020 02:59 A/rajat [id number] Normal [facility] *MRSA/MSSA DNA NASALon 09-17 *MRSA/MSSA DNA NASAL Clinical Report: (D) Specimen: NASAL SWAB Collected: 09/17/2020 10:30 Status: Final Last Updated: 09/17/2020 13:56 MSSA DNA (Final) Methicillin Susceptible Staphylococcus aureus DNA Detected MRSA DNA (Final) Negative Normal [facility] Comment on above: Performed By: #### 3 [id number] #### [facility] [address] APTTon 09-17-2020 aPTT Coag (Bld) [Time] 34.0 s Normal 25.0-35.0 [facility] Comment on above: Result Comment: ALL RESULTS MUST BE INTERPRETED WITH RESPECT TO BLOOD DRAWING ARTIFACT OR DILUTION ERROR OF ANTICOAGULANT AT THE TIME OF SAMPLING. THE APTT SHOULD NOT BE USED TO MONITOR UNFRACTIONATED HEPARIN THERAPY, THIS LABORATORY NO LONGER HAS AN ESTABLISHED THERAPEUTIC RANGE BASED ON THE APTT. IT IS RECOMMENDED THAT THE UFH - HEPARIN ASSAY (ANTI-XA ACTIVITY) BE USED FOR THIS PURPOSE. Performed By: #### 5 [id number], [id number] #### [facility] [address] [place] [address], [facility] BASIC METABOLIC PANELon - Calcium [Mass/Vol] 9.3 mg/dL Normal 8.6-10.3 [facility] Comment on above: Performed By: #### 0 0071 #### [facility] [address] [place] [address], [place] Chloride [Moles/Vol] 103 mmol/L Normal 98-107 [facility] Comment on above: Performed By: #### 0 0071 #### [facility] [address] [place] [address], [place] CO2 [Moles/Vol] 26 mmol/L Normal 21-31 The [facility] Comment on above: Performed By: #### 0 0071 #### [facility] [address] [place] [address], [place] Creatinine [Mass/Vol] 0.74 mg/dL Normal 0.60-1.20 [facility] Comment on above: Performed By: #### 0 0071 #### [facility] [address] [place] [address], [place] GFR/1.73 sq M.predicted among blacks MDRD (S/P/Bld) [Vol rate/Area] mL/min/{1.73_m2} Normal >60 [facility] Comment on above: Performed By: #### 0 0071 #### [facility] [address] [place] [address], [place] GFR/1.73 sq M.predicted among non-blacks MDRD (S/P/Bld) [Vol rate/Area] mL/min/{1.73_m2} Normal >60 [facility] Comment on above: Performed By: #### 0 0071 #### [facility] [address] [place] [address], [place] Glucose [Mass/Vol] 115 mg/dL High 70-100 [facility] Comment on above: Performed By: #### 0 0071 #### [facility] [address] Potassium [Moles/Vol] 3.8 mmol/L Normal 3.5-5.1 [facility] Comment on above: Performed By: #### 0 0071 #### [facility] [address] Sodium [Moles/Vol] 136 mmol/L Normal 136-145 [facility] Comment on above: Performed By: #### 0 0071 #### [facility] [address] Urea nitrogen [Mass/Vol] 11 mg/dL Normal 7-25 [facility] Comment on above: Performed By: #### 0 1 #### [facility] [address] CBC W/DIFFon 09-17-2020 ABS IMM GRANS 0.0 10*3/uL Normal 0.0-0.2 The [facility] Comment on above: Performed By: #### 5 102 #### [facility] [address] ABS NEUTROPHILS 8.6 10*3/uL High 1.6-7.6 The [facility] Comment on above: Performed By: #### 5 102 #### [facility] [address] [place] [address], [facility] Basophils (Bld) [#/Vol] 0.1 10*3/uL Normal 0.0-0.2 [facility] Comment on above: Performed By: #### 5 102 #### [facility] [address] [place] [address], [facility] Basophils/100 WBC (Bld) 0.6 % Normal 0.0-1.0 [facility] Comment on above: Performed By: #### 5 0103 #### [facility] [address] [place] [address], [facility] Eosinophils (Bld) [#/Vol] 0.0 10*3/uL Normal 0.0-0.5 [facility] Comment on above: Performed By: #### 5 0103 #### [facility] [address] [place] [address], [facility] Eosinophils/100 WBC (Bld) 0.3 % Normal 0.0-6.0 [facility] Comment on above: Performed By: #### 5 0103 #### [facility] [address] [facility]. [address] Erythrocyte distribution width (RBC) [Ratio] 11.9 % Normal 11.5-15.0 [facility] Comment on above: Performed By: #### 5 0103 #### [facility] [address] [facility] Hematocrit (Bld) [Volume fraction] 39.5 % Normal 36.0-45.0 [facility] Comment on above: Performed By: #### 5 0103 #### [facility] [address] [facility] Hemoglobin (Bld) [Mass/Vol] 13.2 g/dL Normal 12.0-15.0 [facility] Comment on above: Performed By: #### 5 0103 #### [facility] [address] [place] [address], [facility] IMMATURE GRANS 0.4 % Normal 0.0-1.0 The [facility] Comment on above: Performed By: #### 5 3 #### [facility] [address] [place] [address], [facility] Lymphocytes (Bld) [#/Vol] 1.5 10*3/uL Normal 1.2-4.0 [facility] Comment on above: Performed By: #### 5 3 #### [facility] [address] [place] [address], [facility] Lymphocytes/100 WBC (Bld) 13.5 % Low 20.0-45.0 [facility] Comment on above: Performed By: #### 5 102 #### [facility] [address] [place] [address], [facility] MCH (RBC) [Entitic mass] 30.6 pg Normal 27.0-33.0 [facility] Comment on above: Performed By: #### 3 #### [facility] [address] MCHC (RBC) [Mass/Vol] 33.4 g/dL Normal 32.0-35.0 [facility] Comment on above: Performed By: #### 5 102 #### [facility] [address] [place] [address], [facility] MCV (RBC) [Entitic vol] 91.6 fL Normal 82.0-98.0 [facility] Comment on above: Performed By: #### 5 102 #### [facility] [address] [place] [address], [facility] Monocytes (Bld) [#/Vol] 0.6 10*3/uL Normal 0.1-1.0 [facility] Comment on above: Performed By: #### 5 102 #### [facility] [address] MONOS 5.8 % Normal 5.0-12.0 [facility] Comment on above: Performed By: #### 5 102 #### [facility] [address] [place] [address], [facility] Neutrophils/100 WBC (Bld) 79.4 % High 40.0-72.0 [facility] Comment on above: Performed By: #### 5 0103 #### [facility] [address] [place] [address], [facility] Nucleated RBC/100 WBC (Bld) [Ratio] 0 % Normal 0-0 [facility] Comment on above: Performed By: #### 5 0103 #### [facility] [address] [place] [address], [facility] PLAT CNT 262 10*3/uL Normal 150-400 The [facility] Comment on above: Performed By: #### 5 0103 #### [facility] [address] [place] [address], [facility] RBC (Bld) [#/Vol] 4.31 10*6/uL Normal 3.80-5.00 [facility] Comment on above: Performed By: #### 5 0103 #### [facility] [address] [place] [address], [facility] WBC (Bld) [#/Vol] 10.79 10*3/uL High 4.00-10.60 [facility] Comment on above: Performed By: #### 5 0103 #### [facility] [address] [facility]. [address] POC GLUCOSE LABon 09-17-2020 Glucose [Mass/Vol] 111 mg/dL High 70-100 [facility] Comment on above: Performed By: #### 8 [id number] #### [facility] [address] [facility] POC SARS COV2 ANTIGEN NEGATI VEon 09-17-2020 POC SARS COV2 ANTIGEN NEG Negative Normal NEGATIVE [facility] Comment on above: Result Comment: Nega tive results from patients with symptom onset beyond seven days, should be treated presumptive and confirmation with a molecular assay, if necessary, for patient management, may be performed. Negative results do not rule out SARS-CoV-2 infection and should not be used as the sole basis for treatment or patient management decisions, including infection control decisions. Negative results should be considered in the context of a patient?s recent exposures, history and the presence of clinical signs and symptoms consistent with COVID-19. The NoFlo COVID-19 Ag Card is a lateral flow immunoassay intended for the qualitative detection of nucleocapsid protein antigen from SARS-CoV-2 in direct nasal swabs from individuals within the first seven days of symptom onset. Testing is limited to laboratories certified under the Clinical Laboratory Improvement Amendments of 1988 (CLIA), 42 U.S.C. ???263a, that meet the requirements to perform moderate, high or waived complexity tests. This test is authorized for use at the Point of Care (POC), i.e., in patient care settings operating under a CLIA Certificate of Waiver, Certificate of Compliance, or Certificate of Accreditation. Performed By: #### 3 1976 #### [facility] [address] [facility]. [address] POC URINE PREGNANCYon 2020 Beta HCG ( test) Ql (U) Negative Normal NEGATIVE [facility] Comment on above: Result Comment: Perf ormed in PACU Performed By: #### 8 [id number] #### [facility] [address] [facility]. [address] PROTHROMBIN TIMEon INR Coag (PPP) [Relative time] 0.98 {INR} Normal 0.91-1.16 [facility] Comment on above: Result Comment: ACCC P RECOMMENDED INR FOR WARFARIN THERAPY ----- ------- CONDITION INR PROPHYLAXIS OF VENOUS THROMBOSIS 2-3 (HIGH-RISK SURGERY) TREATMENT OF VENOUS THROMBOSIS 2-3 TREATMENT OF PULMONARY EMBOLISM 2-3 PREVENTION OF SYSTEMIC EMBOLISM: 2-3 ACUTE MYOCARDIAL INFARCTION TISSUE HEART VALVES VALVULAR HEART DISEASE ATRIAL FIBRILLATION RECURRENT SYSTEMIC EMBOLISM MECHANICAL HEART VALVE 2.5-3.5 FROM: ORAL ANTICOAGULANTS. MECHANISM OF ACTION, CLINICAL EFFECTIVENESS, AND OPTIMAL THERAPEUTIC RANGE. CHEST 1995;108:231S-246S. Performed By: #### 5 [id number], [id number] #### [facility] [address] PT Coag (PPP) [Time] 13.0 s Normal 12.3-14.8 [facility] Comment on above: Result Comment: ALL RESULTS MUST BE INTERPRETED WITH RESPECT TO BLOOD DRAWING ARTIFACT OR DILUTION ERROR OF ANTICOAGULANT AT THE TIME OF SAMPLING. Performed By: #### 5 [id number], [id number] #### [facility] [address] Encounters Encounter Date Encounter Type Care Provider Facility Start: 02-10-2023 End: 02-10-2023 ambulatory CIARA KOCH Not Available Start: 12-11-[address] CIARA KOCH Facility :[facility] Start: 12-03-2021 End: 12-04-[address] JAZZY CERRATO Facility:[facility] Start: 06-07-2021 Encounter for preprocedural laboratory examination DR CIARA KOCH [facility] Start: 06-07-2021 End: 06-09-2021 Evaluation and management of inpatient DR DOCTOR AMADOR Facility:[facility] Start: 06-04-2021 End: 06-05-[address] DOCTOR AMADOR Facility:[facility] Start: 06-04-2021 End: 06-05-2021 Encounter for preprocedural laboratory examination DR DOCTOR AMADOR Facility:[facility] Start: 06-03-2021 End: 06-03-[address] CIARA KOCH Facility:[facility] Start: 05-31-2021 Encounter for other preprocedural examination DR CIARA KOCH [facility] Start: 05-27-2021 End: 05-28-[address] CIARA KOCH Facility:[facility] Start: 05-27-2021 End: 05-28-2021 Encounter for other preprocedural examination DR CIARA KOCH Facility:[facility] Start: 02-09-2021 End: 02-09-2021 ambulatory MEREDITH MALDONADO Facility: Start: 09-17-2020 End: 09-18-2020 [facility] Procedures Date Procedure Procedure Detail Performing Clinician Start: 06-07-2021 Removal of Contracep tive Device from Upper Extremity Subcutaneous Tissue and Fascia, Percutaneous Approach MEREDITHJENNIFER MALDONADO Start: 06-07-2021 Resection of Bilater al Fallopian Tubes, Open Approach MEREDITH MALDONADO Start: 06-07-2021 Resection of Uterus, Open Approach MEREDITH MALDONADO Start: 09-17-2020 ANES TX INTERV RAD CRAN VEIN [facility] Start: 09-17-2020 PLACE CATHETER IN VEIN [facility] Start: 09-17-2020 VASC EMBOLIZE/OCCLUDE VENOUS [facility] Payers Date Payer Category Payer Unknown [id number] 1980 Unknown [id number] 2.16.8 [id number] 1981 Unknown [id number] 2.16.84 [id number] 1981 Unknown [id number] 2.16.84 [id number] 1981 Unknown [id number] 2.16.84 [id number] 1981 Unknown [id number] 2.16.84 [id number] 1981 Unknown [id number] 2.16.84 [id number] 1981 Unknown [id number] 2.16.84 [id number] 1981 Unknown [id number] 2.16.84 [id number] 1981 Unknown [id number] [id number] 1959 Self-pay [id number] 1958 Unknown [id number] Discharge summary note 06-07-2021 Note Date & Type Note Facility 06-07-2021 Note DISCHARGE SUMMARY PRIMARY DIAGNOSES: 1. Abnormal Uterine bleeding. 2. Dysmenorrhea. 3. Dyspareunia. PROCEDURE: Total abdominal hysterectomy with bilateral salpingectomy with cystoscopy. HOSPITAL COURSE: As expected. Please see chart for full details. LABORATORY DATA: Please see chart. COMPLICATIONS: None. DISCHARGE CONDITION: Stable. CONSULTATION: Anesthesia. DISCHARGE INSTRUCTIONS: 1.Diet: Regular. 2.Medications: a.Percocet 5/325 one to two p.o. every 4-6 hours p.r.n. pain. b.Motrin 800 one p.o. every 8 hours p.r.n. pain. 3.Followup in one week. Restrictions: Pelvic rest for 6 weeks. No heavy lifting. May drive when pain free and no longer on narcotics. [facility] Signed and Approved by: DR CIARA KOCH . 07/07/2021 18:32:00 [facility] Clinical Note 06-07-2021 Note Date & Type Note Facility 06-07-2021 Note OP Note Operation Date: 06/07/2021 ADDENDUM: To original operative note for removal of Nexplanon. PROCEDURE: The area was the Nexplanon was placed in the patient's right arm was identified. It was prepped and draped in normal sterile fashion. A small skin incision was made in the area of the old insertion site. The hemostat was then used to break down adhesions. The Nexplanon was identified. It was grasped and removed without difficulty. Excellent hemostasis was noted. The area was then bandaged using a Band-Aid. The Nexplanon procedure was completed. [facility] Clinical Note 06-07-2021 Note Date & Type Note Facility 06-07-2021 Note OP Note Operation Date: 06/07/2021 ADDENDUM: To original operative note for removal of Nexplanon. PROCEDURE: The area was the Nexplanon was placed in the patient's right arm was identified. It was prepped and draped in normal sterile fashion. A small skin incision was made in the area of the old insertion site. The hemostat was then used to break down adhesions. The Nexplanon was identified. It was grasped and removed without difficulty. Excellent hemostasis was noted. The area was then bandaged using a Band-Aid. The Nexplanon procedure was completed. [facility] Signed and Approved by: DR CIARA KOCH . 07/07/2021 18:32:00 [facility] Clinical Note 06-07-2021 Note Date & Type Note Facility 06-07-2021 Note The [place], [place] NAME: SANDEE RODRIGUEZ DATE OF : MEDICAL REC#: [id number] CARDBOARD CUTTER: [facility] [facility], TRANS[facility]MIT DATE: 06/07/2021 09:58:00 POLICY AND PLANNING MANAGER DATE: 06/09/2021 23:00 DICTATING PHYSICIAN: CIARA KOCH DICTATION DATE: 06/07/2021 14:00 OPERATIVE NOTE PROCEDURE: Total abdominal hysterectomy with bilateral salpingectomy with cystoscopy. PREOPERATIVE DIAGNOSIS: 1. Abnormal uterine bleeding. 2. Dysmenorrhea. 3. Dyspareunia. POSTOPERATIVE DIAGNOSIS: 1. Abnormal uterine bleeding. 2. Dysmenorrhea. 3. Dyspareunia. ANESTHESIA: General. SURGEON: Ciara Koch D.O. MACHINERY ENGINEER: URIEL Byrd URINE OUTPUT: Yellow and clear. BLOOD LOSS: 50 mL. SPECIMENS: Tubes and uterus. FINDINGS: Normal appearing ovaries, uterus and tubes. PROCEDURE: Patient was taken back to the Operating Room where she was given general anesthesia without difficulty. She was then prepped and draped in the normal sterile fashion. A Pfannenstiel skin incision was then made 2 cm above the symphysis and pubis and carried down to underlying rectus fascia using a Bovie. The fascia was incised in the midline and extended bilaterally using Anderson scissors. Two Santiago clamps were placed on the superior aspect of the fascia and dissected off the underlying rectus muscle. The same was performed on the inferior aspect as well. The muscle was then in the midline. The peritoneum was identified and entered bluntly. Peritoneum was then extended superiorly and inferiorly with good visualization of the bladder. An O'Madrid- O-Fransico retractor was placed into the patient's abdomen. The bowel was packed away with moist laparotomy sponges and the bladder blade was inserted. A Leahey tenaculum was placed on the patient's uterus and used for retraction. on the patients rt side LigaSure apparatus was then used transect and cauterize the mesosalpingx from the fimbriated end to the uteroovarian ligament. The tube was then amputated and removed in its entirety This was carried down serially through the broad ligament and across the round ligament. The bladder flap was then created using the Metzenbaum scissors, and the bladder was easily dissected off the patient's lower uterine segment. A curved Suma was placed across the uterine artery on the right side which was clamped, transected, and suture ligated using #0 Monocryl. This was performed on the contralateral side as well. The bladder was further dissected and a Zeppelin clamp was then placed across the uterosacral and cardinal ligaments. This was transected and suture ligated using #0 Monocryl. This was performed on the contralateral side as well. The uterus was then amputated using Bora scissors. The patient's cuff was closed using #0 PDS in a running locked fashion and this was transfixed to the ipsilateral uterosacral and cardinal ligaments. Excellent hemostasis was assured. The patient's abdomen was copiously irrigated using warm saline. Cystoscopy was performed. Bladder was intact. Efflux was noted from both ostia. Cystoscope was removed. After excellent hemostasis was assured, all instruments were removed from the patient's abdomen. The patient's peritoneum was closed using 3-0 Vicryl in a running fashion. The patient's fascia was closed using #0 Vicryl in a running fashion. The patient's skin was closed using latisha. The patient tolerated the procedure well. Sponge, lap, and needle counts were correct times two. Patient taken to the Recovery Room in stable condition. Electronically Authenticated and Edited by: Ciara Koch DO on 06/25/2021 10:16 PM EDT IF Signed and Approved by: DR CIARA KOCH . 06/25/2021 22:16:00 [facility] Summary Purpose Family History No Family History Records FoundNo Family History Records FoundNo Family History Records Found Advance Directives No Advanced Directives Records FoundNo Advanced Directives Records FoundNo Advanced Directives Records Found Additional Source Comments INFORMATION SOURCE (unrecogn ized section and content) DATE CREATED AUTHOR 10/25/2020 [facility] DATE CREATED AUTHOR AUTHOR'S ORGANIZ ATION 12/12/2021 [facility] DATE CREATED AUTHOR AUTHOR'S ORGANIZ ATION 02/12/2023 [facility] FOR RECORDS PERTAINING TO PATIENTS WHO ARE OR HAVE BEEN ENROLLED IN A CHEMICAL DEPENDENCY/SUBSTANCEABUSE PROGRAM, SOME INFORMATION MAY BE OMITTED. This clinical summary was aggregated from multiple sources. Caution should be exercised in using it in the provision of clinical care. This summary normalizes information from multiple sources, and as a consequence, information in this document may materially change the coding, format and clinical context of patient data. In addition, data may be omitted in some cases. CLINICAL DECISIONS SHOULD BE BASED ON THE PRIMARY CLINICAL RECORDS. [facility] [employer] provides no warranty or guarantee of the accuracy or completeness of information in this document.
[2024-03-04 16:08] LABS: Age Gdln ACOG Testing Note (.); HPV Aptima Negative (Negative); IGP, Aptima HPV, rfx 16/18,45 Note (.)
== END 2024-02-25 18:46 | disposition home or self-care (01) ==
LOC: LAB 18:45
PROVIDERS: Visit Provider Physician Assistant
DX: Z01.419 Encounter for gynecological examination (general) (routine) without abnormal findings (principal)
CPT/HCPCS: 87624; 88175

== ENCOUNTER 2024-11-09 09:04 | Outpatient (OUT) | payer BC, SELFPAY ==
--- OUTSIDE RECORDS SUMMARY | 2024-11-09 09:31 | XMS_ITS | CCD ---
Author Organization [facility] CliniSyfl Care Team Providers Care Radio Station Operator Name Role Phone MAGED CANTU Admitting Unavailable MAGED CANTU Attending Unavailable SELF, REFERRED Primary Care Unavailable SELF, REFERRED Referring Unavailable [place] Procedure Practitioner Unavailab le MAGED CANTU Surgeon Unavailable MEREDITH MALDONADO Admitting Unavailable MEREDITH MALDONDAO Attending Unavailable MEREDITH MALDONADO Consulting Unavailable MISC, DR DENIS Primary Care Unavailable SAIDABDOUL Consulting Unavailable MISC, DR DENIS Primary Care [...] Myers Consulting Unavailable ELIDA VARGAS Consulting Unavailable JUANLYNN Calabrese Consulting Unavailable RYAN, DR URBINA Admitting Unavailable MISC, DR DENIS Primary Care Unavailable RYAN, DR URBINA Attending Unavailable RYAN, DR URBINA Consulting Unavailable KARASIK, DR PURCELL Admitting Unavailable KARASIK, DR PURCELL Attending Unavailable KARASIK, DR PURCELL Consulting Unavailable MISC, DR DENIS Primary Care Unavailable [place], DR Carlin Consulting Unavailable Unavailable Primary Care Provider UnavailMAGDA Guzman Attending Unavailable Sandee Watters APRN Primary Care Provider Sandee Watters APRN Attending Provider Medications Current Medications Medication Drug Class(es) Dates Sig (Normalized) Sig (Original) amoxicillin 875 mg / clavulanate 125 mg oral tablet (1 source) Penicillin-class Antibacterial Start: 09-06-2024 take 1 tablet by mouth twice daily Amoxicillin-Pot Clavulanate 875-125 mg tablet Active 1 TAB PO Twice daily 14 7 September 06, 2024 12:00am Complies with drug therapy ascorbic acid 1000 mg extended release oral tablet (5 sources) Vitamin C Start: 09-06-2024 take 1 tablet by mouth every twelve hours Ascorbic Acid (Vitamin C) 1,000 mg tablet extended release Active 1000 MG PO Every 12 hours September 06, 2024 12:00am Complies with drug therapy ascorbic acid (V itamin C) 100 MG chewable tablet Vitamin C Active biotin 10 mg oral capsule (6 sources) Start: 12-19-2021 End: 02-25-2024 take 1 capsule by mouth in the morning biotin 10 MG capsule Take 1 capsule by mouth in the morning. 12/19/2021 02/25/2024 Discontinued End: 02-25-2024 biotin 26270 MCG tablet 1 (o ne) time each day at the same time 02/25/2024 Discontinued cephalexin 500 mg oral capsule (7 sources) Cephalosporin Antibacterial Start: 09-06-2024 take 1 capsule by mouth twice daily Cephalexin 500 mg capsule Active 500 MG PO Twice daily September 06, 2024 12:00am Complies with drug therapy Start: 12-29-2023 End: 03-26-2024 take 1 capsule by mouth once daily cephalexin (Keflex) 500 MG capsule Indications: Cervicitis Take 1 capsule (500 mg) by mouth Daily 30 capsule 11 02/25/2024 03/26/2024 Active cholecalciferol 0.025 mg oral capsule (3 sources) Vitamin D End: 02-25-2024 cholecalciferol (Vitamin D-3) 25 MCG (1000 UT) capsule Vitamin D3 02/25/2024 Discontinued estradiol 0.5 mg oral tablet (4 sources) Estrogen Start: 07-02-2023 take 1 tablet by mouth once daily in the morning estradiol (Estrace) 0.5 MG tablet Indications: Asymptomatic menopausal state take 1 tablet by mouth every morning 90 tablet 3 07/02/2023 Active famotidine 10 mg oral tablet (1 source) Histamine-2 Receptor Antagonist Start: 09-06-2024 take 1 tablet by mouth once daily before mealtime Famotidine (Pepcid Ac) 10 mg tablet Active 10 MG PO Daily September 06, 2024 12:00am Complies with drug therapy Folic Acid (1 source) Start: 09-06-2024 Folic Acid 480 mcg capsule Active 1200 MCG PO Daily September 06, 2024 12:00am Complies with drug therapy Magnesium Aspart,Citrate,Oxide (Triple Magnesium Complex) 400 mg magnesium capsule (1 source) Start: 09-06-2024 Magnesium Aspart,Citrate,Oxide (Triple Magnesium Complex) 400 mg magnesium capsule Active MG PO September 06, 2024 12:00am Complies with drug therapy Vit D3-Vit K2-Ca Fructoborate 20 mcg-180 mcg- 216 mg tablet (1 source) Start: 09-06-2024 Vit D3-Vit K2-Ca Fructoborate 20 mcg-180 mcg- 216 mg tablet Active TAB PO September 06, 2024 12:00am Complies with drug therapy vitamin b12 0.1 mg oral tablet (3 sources) Vitamin B12 End: 02-25-2024 cyanocobalamin (Vitamin B-12) 100 MCG tablet Vitamin B12 02/25/2024 Discontinued zinc gluconate 50 mg oral tablet (4 sources) Start: 09-06-2024 take 1 tablet by mouth once daily Zinc Gluconate 50 mg tablet Active 50 MG PO Daily September 06, 2024 12:00am Complies with drug therapy End: 02-25-2024 Zinc Gluconate 10 MG lozenge Zinc Gluconate 02/25/2024 Discontinued Problems Active Problems Problem Classification Problem Date Documented Da te Episodic/Chronic Inflammatory diseases of female pelvic organs (2 sources) Inflammation of cervix; Translations: [Inflammatory disease of cervix uteri] 02-25-2024 Episodic Menstrual disorders (3 sources) Dysmenorrhea, unspecified; Translations: [...] AND CONTACT BLEEDING] Onset: 07-02-2021 Chronic Other female genital disorders (4 sources) Postcoital bleeding; Translations: [Postcoital and contact bleeding] Onset: 09-11-2022 09-11-2022 Chronic Other screening for suspected conditions (not mental disorders or infectious disease) (16 sources) Encounter for screening for nutritional disorder; [...] MALIG NEOPLASM OTH ORGN/SYS] Onset: 12-05-2021 Episodic Skin and subcutaneous tissue infections (2 sources) Cellulitis of finger of right hand; Translations: [Cellulitis of right finger] 09-06-2024 Episodic Unclassified (1 source) CONTACT W/AND (SUSP) EXPOS COVID-19; Translations: [CONTACT W/AND (SUSP) EXPOS COVID-19] Onset: 06-07-2021 Past or Other Problems Problem Classification Problem Date Documented Date Episodic/Chronic Abdominal pain (5 sources) Pelvic and perineal pain; Translations: [PELVIC AND PERINEAL PAIN] Onset: 02-09-2021 Episodic Deficiency and other anemia (4 sources) Anemia; Translations: [Anemia, unspecified] Onset: 09-11-2022 09-11-2022 Episodic Headache; including migraine (4 sources) Headache; Translations: [Headache] Onset: 09-11-2022 09-11-2022 Episodic Immunizations and screening for infectious disease (1 source) Encounter for screening for human papillomavirus (HPV); Translations: [ENC SCREENING HUMAN PAPILLOMAVIRUS] Onset: 06-05-2021 Episodic Mood disorders (5 sources) Emotional lability; Translations: [Mood swings] Onset: 07-02-2021 09-11-2022 Episodic Other aftercare (1 source) Other long term acute care registered nurse (current) drug therapy; Translations: [OTH DIRECTOR OF SPORTS MEDICINE CURRENT DRUG THERAPY] Onset: 07-02-2021 Episodic Other endocrine disorders (4 sources) Disorder of endocrine system; Translations: [Endocrine disorder, unspecified] Onset: 09-11-2022 09-11-2022 Episodic Other female genital disorders (1 source) Other specified conditions associated with female genital organs and menstrual cycle; Translations: [OTH SPEC COND FE GEN ORG MENST CYCL] Onset: 07-02-2021 Episodic Other female genital disorders (4 sources) Pelvic congestion syndrome; Translations: [Other specified conditions associated with female genital organs and menstrual cycle] Onset: 09-11-2022 09-11-2022 Episodic Other skin disorders (4 sources) Alopecia; Translations: [Nonscarring hair loss, unspecified] Onset: 09-11-2022 09-11-2022 Episodic Residual codes; unclassified (4 sources) Flushing; Translations: [Flushing] Onset: 09-11-2022 09-11-2022 Episodic Results Test Name Value Interpretation Reference Range Facility IGP,APTIMA HPV,AGE GDLNon AGE GDLN ACOG TESTING Note . [facility] Comment on above: TESTS RESULT FLAG UN ITS REF RANGE LAB Clinician Provided Cytology Information Source.............Vagina No. of containers..01 ThinPrep Vial Age Algo ACOG Capri... 30-65 01 FLAG LEGEND: L-Low Normal,H-High Normal,LL-Alert Low,HH-Alert High <-Panic Low,>-Panic High,A-Abnormal,AA-Critical Abnormal Performed at: 01 =G [facility] [place] [address] Holly Henriquez MD, HPV APTIMA Negative Negative [facility] Comment on above: This nucleic acid am plification test detects fourteen high- risk HPV types (16,18,31,33,35,39,45,51,52,56,58,59,66,68) without differentiation. Performed at: =G - [facility] [id number] [place] Worker: Holly Henriquez MD, Phone: [phone] Performed at: - [facility], [place] [id number] [place] Worker: Holly Henriquez MD, Phone: [phone] IGP, APTIMA HPV, RFX 16/18,45 Note . [facility] Comment on above: TESTS RESULT FLAG UN ITS REF RANGE LAB DIAGNOSIS: 02 NEGATIVE FOR INTRAEPITHELIAL LESION OR MALIGNANCY. CELLULAR CHANGES ASSOCIATED WITH INFLAMMATION ARE PRESENT. Specimen adequacy: 02 Satisfactory for evaluation. Performed by: Daren Irwin, Incident Response Lead ([facility]) . 02 Note: Note 02 The Pap smear is a screening test designed to aid in the detection of premalignant and malignant conditions of the uterine cervix. It is not a diagnostic procedure and should not be used as the sole means of detecting cervical cancer. Both false-positive and false-negative reports do occur. Test Methodology: Note 02 This liquid based ThinPrep(R) pap test was screened with the use of an image guided system. HPV Genotype Reflex Note 02 Criteria not met, HPV Genotype not performed. FLAG LEGEND: L-Low Normal,H-High Normal,LL-Alert Low,HH-Alert High <-Panic Low,>-Panic High,A-Abnormal,AA-Critical Abnormal Performed at: 02 WB [facility] [address] [place] [address] Holly Henriquez MD, [facility] Cervical or vaginal smear or scraping studyon 10-17-2022 [facility] MG MAMM SCREEN 3D LO CADon 12-03-2021 MG MAMM SCREEN 3D LO CAD Patient: SANDEE RODRIGUEZ Exam Date: 12/03/2021 : 1980 Gender:F Ordering : DR JAZZY CERRATO . Admission #: [id number] Family : Order #: [id number] CLICK HERE TO VIEW EXAM RADIOLOGY REPORT [...] bone cancer at age 89. LOCATION: [facility] BREAST COMPOSITION: Heterogeneously dense,which may obscure [...] MD on 12/04/2021 at 07:[address] [facility] CBC AUTO DIFFon 06-09-2021 BASO # 0.1 103/ul Normal 0.0-0.[address] [facility] Comment on above: Performed By: #### B RAMY DUMONT #### [facility] [address] [place] [address] Dr. Milind De Paz Basophils/100 WBC (Bld) 0.7 % Normal 0.2-2.[address] [facility] Comment on above: Performed By: #### B UN, CREA #### [facility] [address] [place] [address] Dr. Milind De Paz EO # 0.3 103/ul Normal 0.0-0.[address] [facility] Comment on above: Performed By: #### B UN, CREA #### [facility] [address] [place] [address] Dr. Milind De Paz Eosinophils/100 WBC (Bld) 3.6 % Normal 0.9-7.[address] [facility] Comment on above: Performed By: #### B UN, CREA #### [facility] [address] [place] [address] Dr. Milind De Paz Erythrocyte distribution width (RBC) [Ratio] 12.1 % Normal 11.0-15.0 [facility] Comment on above: Performed By: #### B UN, CREA #### [facility] [address] [place] [address] Dr. Milind De Paz Hematocrit (Bld) [Volume fraction] 31.0 % Critically low 36.0-48.0 [facility] Comment on above: Performed By: #### B UN, CREA #### [facility] [address] [place] [address] Dr. Milind De Paz Hemoglobin (Bld) [Mass/Vol] 10.0 g/dL Critically low 12.0-16.[address] [facility] Comment on above: Performed By: #### B UN, CREA #### [facility] [address] [place] [address] Dr. Milind De Paz IG # 0.03 10e3/ul Normal 0.00-0.03 [facility] Comment on above: Performed By: #### B UN, CREA #### [facility] [address] [place] [address] Dr. Milind De Paz IG % 0.3 % Normal 0.0-0.5 [facility] Comment on above: Performed By: #### B UN, CREA #### [facility] [address] [place] [address] Dr. Milind De Paz LYMPH # 2.7 103/ul Normal 1.2-3.8 [facility] Comment on above: Performed By: #### B UN, CREA #### [facility] [address] [place] [address] Dr. Milind De Paz Lymphocytes/100 WBC (Bld) 31.0 % Normal 20.5-60.0 [facility] Comment on above: Performed By: #### B UN, CREA #### [facility] [address] [place] [address] Dr. Milind De Paz MANUAL DIFF REQ NO Normal [facility] Comment on above: Performed By: #### B UN, CREA #### [facility] [address] [place] [address] Dr. Milind De Paz MCH (RBC) [Entitic mass] 30.7 pg Normal 26.7-34.0 [facility] Comment on above: Performed By: #### B UN, CREA #### [facility] [address] [place] [address] Dr. Milind De Paz MCHC (RBC) [Mass/Vol] 32.3 g/dL Normal 29.9-35.2 [facility] Comment on above: Performed By: #### B UN, CREA #### [facility] [address] [place] [address] Dr. Milind De Paz MCV (RBC) [Entitic vol] 95.1 fL Normal 81.0-99.[address] [facility] Comment on above: Performed By: #### B UN, CREA #### [facility] [address] [place] [address] Dr. Milind De Paz MONO # 0.9 103/ul Critically high 0.3-0.8 [facility] Comment on above: Performed By: #### B UN, CREA #### [facility] [address] [place] [address] Dr. Milind De Paz Monocytes/100 WBC (Bld) 10.3 % Normal 1.7-12.[address] [facility] Comment on above: Performed By: #### B UN, CREA #### [facility] [address] [place] [address] Dr. Milind De Paz NEUT # 4.7 103/ul Normal 1.4-6.[address] [facility] Comment on above: Performed By: #### B UN, CREA #### [facility] [address] [place] [address] Dr. Milind De Paz Neutrophils/100 WBC (Bld) 54.1 % Normal 43.0-75.[address] [facility] Comment on above: Performed By: #### B UN, CREA #### [facility] [address] [place] [address] Dr. Milind eD Paz Platelet mean volume (Bld) [Entitic vol] 10.6 fL Normal 9.5-13.[address] [facility] Comment on above: Performed By: #### B UN, CREA #### [facility] [address] [place] [address] Dr. Milind De Paz PLT 195 103/ul Normal 150-[address] [facility] Comment on above: Performed By: #### B UN, CREA #### [facility] [address] [place] [address] Dr. Milind De Paz RBC 3.26 106/ul Critically low 4.20-5.40 [facility] Comment on above: Performed By: #### B UN, CREA #### [facility] [address] [place] [address] Dr. Milind De Paz WBC 8.7 103/ul Normal 4.0-11.[address] [facility] Comment on above: Performed By: #### B UN, CREA #### [facility] [address] [place] [address] Dr. Milind Caruso 06-08-2021 Urea nitrogen [Mass/Vol] 9.0 mg/dL Normal 7.0-18.0 [facility] Comment on above: Performed By: #### B UN, CREA #### [facility] [address] [address] [address] Milind De Paz CBC AUTO DIFFon 06-08-2021 BASO # 0.0 103/ul Normal 0.0-0.1 [facility] Comment on above: Performed By: #### C BC #### [facility] [address] [address] [address] Milind De Paz Basophils/100 WBC (Bld) 0.2 % Normal 0.2-2.0 [facility] Comment on above: Performed By: #### C BC #### [facility] [address] [address] [address] Milind De Paz EO # 0.0 103/ul Normal 0.0-0.7 [facility] Comment on above: Performed By: #### C BC #### [facility] [address] [place] [address] Dr. Milind De Paz Eosinophils/100 WBC (Bld) 0.1 % Critically low 0.9-7.0 [facility] Comment on above: Performed By: #### C BC #### [facility] [address] [place] [address] Dr. Milind De Paz Erythrocyte distribution width (RBC) [Ratio] 11.8 % Normal 11.0-15.0 [facility] Comment on above: Performed By: #### C BC #### [facility] [address] [place] [address] Dr. Milind De Paz Hematocrit (Bld) [Volume fraction] 31.9 % Critically low 36.0-48.0 [facility] Comment on above: Performed By: #### C BC #### [facility] [address] [place] [address] Dr. Milind De Paz Hemoglobin (Bld) [Mass/Vol] 10.7 g/dL Critically low 12.0-16.0 [facility] Comment on above: Performed By: #### C BC #### [facility] [address] [place] [address] Dr. Milind De Paz IG # 0.05 10e3/ul Critically high 0.00-0.03 [facility] Comment on above: Performed By: #### C BC #### [facility] [address] [place] [address] Dr. Milind De Paz IG % 0.3 % Normal 0.0-0.5 [facility] Comment on above: Performed By: #### C BC #### [facility] [address] [place] [address] Dr. Milind De Paz LYMPH # 1.4 103/ul Normal 1.2-3.[address] [facility] Comment on above: Performed By: #### C BC #### [facility] [address] [place] [address] Dr. Milind De Paz Lymphocytes/100 WBC (Bld) 9.7 % Critically low 20.5-60.0 [facility] Comment on above: Performed By: #### C BC #### [facility] [address] [place] [address] Dr. Milind De Paz MANUAL DIFF REQ NO Normal [facility] Comment on above: Performed By: #### C BC #### [facility] [address] [place] [address] Dr. Milind De Paz MCH (RBC) [Entitic mass] 30.6 pg Normal 26.7-34.0 [facility] Comment on above: Performed By: #### C BC #### [facility] [address] [place] [address] Dr. Milind De Paz MCHC (RBC) [Mass/Vol] 33.5 g/dL Normal 29.9-35.[address] [facility] Comment on above: Performed By: #### C BC #### [facility] [address] [place] [address] Dr. Milind De Paz MCV (RBC) [Entitic vol] 91.1 fL Normal 81.0-99.[address] [facility] Comment on above: Performed By: #### C BC #### [facility] [address] [place] [address] Dr. Milind De Paz MONO # 1.2 103/ul Critically high 0.3-0.8 [facility] Comment on above: Performed By: #### C BC #### [facility] [address] [address] [address] Milind De Paz Monocytes/100 WBC (Bld) 8.2 % Normal 1.7-12.[address] [facility] Comment on above: Performed By: #### C BC #### [facility] [address] [place] [address] Dr. Milind De Paz NEUT # 12.2 103/ul Critically high 1.4-6.5 [facility] Comment on above: Performed By: #### C BC #### [facility] [address] [place] [address] Dr. Milind De Paz Neutrophils/100 WBC (Bld) 81.5 % Critically high 43.0-75.[address] [facility] Comment on above: Performed By: #### C BC #### [facility] [address] [place] [address] Dr. Milind De Paz Platelet mean volume (Bld) [Entitic vol] 10.5 fL Normal 9.5-13.[address] [facility] Comment on above: Performed By: #### C BC #### [facility] [address] [place] [address] Dr. Milind De Paz PLT 220 103/ul Normal 150-[address] [facility] Comment on above: Performed By: #### C BC #### [facility] [address] [place] [address] Dr. Milind De Paz RBC 3.50 106/ul Critically low 4.20-5.40 [facility] Comment on above: Performed By: #### C BC #### [facility] [address] [place] [address] Dr. Milind De Paz WBC 14.9 103/ul Critically high 4.0-11.0 [facility] Comment on above: Performed By: #### C BC #### [facility] [address] [place] [address] Dr. Milind De Paz CREATININEon 06-08-2021 Creatinine [Mass/Vol] 0.61 mg/dL Normal 0.52-1.[address] [facility] Comment on above: Performed By: #### B RAMY DUMONT #### [facility] [address] [place] [address] Dr. Milind De Paz EGFR-AF THAI >60 Normal >=60 [facility] Comment on above: Performed By: #### B JULIA, CREA #### [facility] [address] [place] [address] Dr. Milind De Paz EGFR-NON AF THAI >60 Normal >=[address] [facility] Comment on above: Performed By: #### B JULIA, CREA #### [facility] [address] [place] [address] Dr. Milind De Paz CBC AUTO DIFFon 06-07-2021 BASO # 0.1 103/ul Normal 0.0-0.[address] [facility] Comment on above: Performed By: #### C BC #### [facility] [address] [place] [address] Dr. Milind De Paz Basophils/100 WBC (Bld) 0.8 % Normal 0.2-2.[address] [facility] Comment on above: Performed By: #### C BC #### [facility] [address] [place] [address] Dr. Milind De Paz EO # 0.2 103/ul Normal 0.0-0.[address] [facility] Comment on above: Performed By: #### C BC #### [facility] [address] [place] [address] Dr. Milind De Paz Eosinophils/100 WBC (Bld) 3.0 % Normal 0.9-7.[address] [facility] Comment on above: Performed By: #### C BC #### [facility] [address] [place] [address] Dr. Milind De Paz Erythrocyte distribution width (RBC) [Ratio] 11.8 % Normal 11.0-15.[address] [facility] Comment on above: Performed By: #### C BC #### [facility] [address] [place] [address] Dr. Milind De Paz Hematocrit (Bld) [Volume fraction] 36.6 % Normal 36.0-48.[address] [facility] Comment on above: Performed By: #### C BC #### [facility] [address] [place] [address] Dr. Milind De Paz Hemoglobin (Bld) [Mass/Vol] 12.3 g/dL Normal 12.0-16.0 [facility] Comment on above: Performed By: #### C BC #### [facility] [address] [place] [address] Dr. Milind De Paz IG # 0.01 10e3/ul Normal 0.00-0.03 [facility] Comment on above: Performed By: #### C BC #### [facility] [address] [place] [address] Dr. Milind De Paz IG % 0.1 % Normal 0.0-0.5 [facility] Comment on above: Performed By: #### C BC #### [facility] [address] [place] [address] Dr. Milind De Paz LYMPH # 1.9 103/ul Normal 1.2-3.[address] [facility] Comment on above: Performed By: #### C BC #### [facility] [address] [place] [address] Dr. Milind De Paz Lymphocytes/100 WBC (Bld) 25.3 % Normal 20.5-60.[address] [facility] Comment on above: Performed By: #### C BC #### [facility] [address] [place] [address] Dr. Milind De Paz MANUAL DIFF REQ NO Normal [facility] Comment on above: Performed By: #### C BC #### [facility] [address] [place] [address] Dr. Milind De Paz MCH (RBC) [Entitic mass] 31.0 pg Normal 26.7-34.[address] [facility] Comment on above: Performed By: #### C BC #### [facility] [address] [place] [address] Dr. Milind De Paz MCHC (RBC) [Mass/Vol] 33.6 g/dL Normal 29.9-35.[address] [facility] Comment on above: Performed By: #### C BC #### [facility] [address] [place] [address] Dr. Milind De Paz MCV (RBC) [Entitic vol] 92.2 fL Normal 81.0-99.[address] [facility] Comment on above: Performed By: #### C BC #### [facility] [address] [place] [address] Dr. Milind De Paz MONO # 0.5 103/ul Normal 0.3-0.[address] [facility] Comment on above: Performed By: #### C BC #### [facility] [address] [place] [address] Dr. Milind De Paz Monocytes/100 WBC (Bld) 6.8 % Normal 1.7-12.[address] [facility] Comment on above: Performed By: #### C BC #### [facility] [address] [place] [address] Dr. Milind De Paz NEUT # 4.9 103/ul Normal 1.4-6.5 [facility] Comment on above: Performed By: #### C BC #### [facility] [address] [place] [address] Dr. Milind De Paz Neutrophils/100 WBC (Bld) 64.0 % Normal 43.0-75.[address] [facility] Comment on above: Performed By: #### C BC #### [facility] [address] [place] [address] Dr. Milind De Paz Platelet mean volume (Bld) [Entitic vol] 10.2 fL Normal 9.5-13.[address] [facility] Comment on above: Performed By: #### C BC #### [facility] [address] [place] [address] Dr. Milind De Paz PLT 257 103/ul Normal 150-[address] [facility] Comment on above: Performed By: #### C BC #### [facility] [address] [place], [place] [id number] Dr. Milind De Paz RBC 3.97 106/ul Critically low 4.20-5.40 [facility] Comment on above: Performed By: #### C BC #### [facility] [address] [place] [address] Dr. Milind De Paz WBC 7.6 103/ul Normal 4.0-11.[address] [facility] Comment on above: Performed By: #### C BC #### [facility] [address] [address] [address] Milind De Paz PREG QUANT HCGon 06-07-2021 HCG QUANT <1 Normal [facility] Comment on above: Performed By: #### B UN, CREA #### [facility] [address] [address] [address] Milind De Paz HCG RANGE SEE BELOW Normal [facility] Comment on above: Result Comment: 5-50 0-1 WEEK 40-300 1-2 WEEKS 100-1,000 2-3 WEEKS 500-6,000 3-4 WEEKS 5,000-200,000 1-2 MONTHS 10,000-100,000 2-3 MONTHS 3,000-50,000 2ND TRIMESTER 1,000-50,000 3RD TRIMESTER Performed By: #### B UN, CREA #### [facility] [address] [address] [address] Milind De Paz TYPE AND SCREENon 06-07-2021 TYPE AND SCREEN Negative Normal [facility] Comment on above: Performed By: #### B UN, CREA #### [facility] [address] [address] [address] Milind De Paz PAP ACOG PANEL 2: 30 to 65on 06-06-2021 . . Normal [facility] Comment on above: Result Comment: Perf ormed at: WB Performed By: #### B UN, CREA #### [facility] [address] [place] [address] Dr. Milind De Paz Age Gdln ACOG Testing 30-65 Normal [facility] Comment on above: Performed By: #### B UN, CREA #### [facility] [address] [address] [address] Milind De Paz DIAGNOSIS: Comment Normal [facility] Comment on above: Result Comment: NEGA TIVE FOR INTRAEPITHELIAL LESION OR MALIGNANCY. Performed at: WB Performed By: #### B UN, CREA #### [facility] [address] [address] [address] Milind De Paz HPV Aptima Negative Normal Negative [facility] Comment on above: Result Comment: This nucleic acid amplification test detects fourteen high-risk HPV types (16,18,31,33,35,39,45,51,52,56,58,59,66,68) without differentiation. Performed at: =G Performed By: #### B UN, CREA #### [facility] [address] [place] [address] Dr. Milind De Paz Methodology: Comment Normal [facility] Comment on above: Result Comment: This liquid based ThinPrep(R) pap test was screened with the use of an image guided system. Performed at: WB Performed By: #### B UN, CREA #### [facility] [address] [place] [address] Dr. Milind De Paz Note: Comment Normal [facility] Comment on above: Result Comment: The [...] Performed By: #### B UN, CREA #### [facility] [address] [place] [address] Dr. Milind De Paz Performed by: Comment Normal [facility] Comment on above: Result Comment: Magda Staton, Incident Response Lead (ASCP) Performed at: WB Performed By: #### B UN, CREA #### [facility] [address] [place] [address] Dr. Milind De Paz Specimen adequacy: Comment Normal [facility] Comment on above: Result Comment: Sati sfactory for evaluation. Endocervical and/or squamous metaplastic cells (endocervical component) are present. Performed at: WB Performed By: #### B UN, CREA #### [facility] [address] [place] [address] Dr. Milind De Paz Covid-19 PCR ([facility]on 05-08 SARS-CoV-2 (COVID-19) RNA FRIDA+probe Ql (Unsp spec) Not detected Normal NOT DETECTED [facility] Comment on above: Result Comment: This test is not yet approved or cleared by the [place] FDA. When there are no FDA-approved or cleared tests available, and other criteria are met, FDA can make tests available under an emergency access mechanism called an Emergency Use Authorization (EUA). The EUA for this test is supported by the Financial Adviser of Health and Human Service's (HHS's) declaration [...] SARS-CoV-2. Performed By: #### C VDTB #### [facility] [address] [place] [address] Dr. Milind De Paz TYPE AND SCREENon 06-04-2021 TYPE AND SCREEN Negative Normal [facility] Comment on above: Performed By: #### B UN, CREA #### [facility] [address] [place] [address] Dr. Milind De Paz CHLAMYDIA/GONOCOCCUS FRIDA (SW AB/URINE/PAPon 02-12-2021 Chlamydia trachomatis, FRIDA Negative Normal Negative [facility] Comment on above: Performed By: #### B UN, CREA #### [facility] [address] [place] [address] Dr. Milind De Paz Neisseria gonorrhoeae, FRIDA Negative Normal Negative [facility] Comment on above: Performed By: #### B UN, CREA #### [facility] [address] [place] [address] Dr. Milind De Paz CBC AUTO DIFFon 02-09-2021 BASO # 0.1 103/ul Normal 0.0-0.1 [facility] Comment on above: Performed By: #### B UN, CREA #### [facility] [address] [place] [address] Dr. Milind De Paz Basophils/100 WBC (Bld) 0.9 % Normal 0.2-2.[address] [facility] Comment on above: Performed By: #### B UN, CREA #### [facility] [address] [place] [address] Dr. Milind De Paz EO # 0.2 103/ul Normal 0.0-0.[address] [facility] Comment on above: Performed By: #### B UN, CREA #### [facility] [address] [place] [address] Dr. Milind De Paz Eosinophils/100 WBC (Bld) 2.6 % Normal 0.9-7.[address] [facility] Comment on above: Performed By: #### B UN, CREA #### [facility] [address] [place] [address] Dr. Milind De Paz Erythrocyte distribution width (RBC) [Ratio] 11.6 % Normal 11.0-15.[address] [facility] Comment on above: Performed By: #### B UN, CREA #### [facility] [address] [place] [address] Dr. Milind De Paz Hematocrit (Bld) [Volume fraction] 35.9 % Critically low 36.0-48.[address] [facility] Comment on above: Performed By: #### B UN, CREA #### [facility] [address] [place] [address] Dr. Milind De Paz Hemoglobin (Bld) [Mass/Vol] 11.8 g/dL Critically low 12.0-16.[address] [facility] Comment on above: Performed By: #### B UN, CREA #### [facility] [address] [place] [address] Dr. Milind De Paz IG # 0.01 10e3/ul Normal 0.00-0.[address] [facility] Comment on above: Performed By: #### B UN, CREA #### [facility] [address] [place] [address] Dr. Milind De Paz IG % 0.1 % Normal 0.0-0.[address] [facility] Comment on above: Performed By: #### B UN, CREA #### [facility] [address] [place] [address] Dr. Milind De Paz LYMPH # 2.8 103/ul Normal 1.2-3.[address] [facility] Comment on above: Performed By: #### B UN, CREA #### [facility] [address] [place] [address] Dr. Milind De Paz Lymphocytes/100 WBC (Bld) 35.9 % Normal 20.5-60.[address] [facility] Comment on above: Performed By: #### B UN, CREA #### [facility] [address] [place] [address] Dr. Milind De Paz MANUAL DIFF REQ NO Normal [facility] Comment on above: Performed By: #### B UN, CREA #### [facility] [address] [place] [address] Dr. Milind De Paz MCH (RBC) [Entitic mass] 30.3 pg Normal 26.7-34.0 [facility] Comment on above: Performed By: #### B UN, CREA #### [facility] [address] [place] [address] Dr. Milind De Paz MCHC (RBC) [Mass/Vol] 32.9 g/dL Normal 29.9-35.2 [facility] Comment on above: Performed By: #### B UN, CREA #### [facility] [address] [place] [address] Dr. Milind De Paz MCV (RBC) [Entitic vol] 92.1 fL Normal 81.0-99.0 [facility] Comment on above: Performed By: #### B UN, CREA #### [facility] [address] [place] [address] Dr. Milind De Paz MONO # 0.8 103/ul Normal 0.3-0.8 [facility] Comment on above: Performed By: #### B UN, CREA #### [facility] [address] [place] [address] Dr. Milind De Paz Monocytes/100 WBC (Bld) 10.1 % Normal 1.7-12.0 [facility] Comment on above: Performed By: #### B UN, CREA #### [facility] [address] [address] [address] Milind De Paz NEUT # 3.9 103/ul Normal 1.4-6.5 [facility] Comment on above: Performed By: #### B UN, CREA #### [facility] [address] [address] [address] Milind De Paz Neutrophils/100 WBC (Bld) 50.4 % Normal 43.0-75.0 [facility] Comment on above: Performed By: #### B UN, CREA #### [facility] [address] [address] [address] Milind De Paz Platelet mean volume (Bld) [Entitic vol] 10.5 fL Normal 9.5-13.5 [facility] Comment on above: Performed By: #### B UN, CREA #### [facility] [address] [address] [address] Milind De Paz PLT 273 103/ul Normal 150-450 [facility] Comment on above: Performed By: #### B UN, CREA #### [facility] [address] [address] [address] Milind De Paz RBC 3.90 106/ul Critically low 4.20-5.40 [facility] Comment on above: Performed By: #### B UN, CREA #### [facility] [address] [address] [address] Milind De Paz WBC 7.8 103/ul Normal 4.0-11.[address] [facility] Comment on above: Performed By: #### B UN, CREA #### [facility] [address] [place] [address] ABD/PELV W [...] ABDOUL MARINO Date: 2021-02-09 03:[address] [facility] CULTURE VAG/CERVIXon 021 CULTURE VAG/CERVIX Culture Observations : NORMAL VAGINAL DAVID Normal [facility] Comment on above: Performed By: #### B RAMY DUMONT #### [facility] [address] [place] [address] Dr. Milind De Paz ER URINE PROFILEon 1 Bilirubin Ql (U) Negative Normal NEGATIVE [facility] Comment on above: Performed By: #### E KRY[place] UMICRO #### [facility] [address] [place] [address] Dr. Milind De Paz Clarity (U) CLEAR Normal CLEAR [facility] Comment on above: Performed By: #### E KRY[place]LE [place] UMICRO #### [facility] [address] [place] [address] Dr. Milind De Paz Color (U) YELLOW Normal YELLOW [facility] Comment on above: Performed By: #### E [place] UMICRO #### [facility] [address] [place] [address] Dr. Yilan De Paz ERUAHD A micrscopic examination will be performed if indicated. Normal [facility] Comment on above: Performed By: #### E RUR, PREGU, UMICRO #### [facility] [address] [address] [address] Milind De Paz Glucose Ql (U) Negative Normal NEGATIVE [facility] Comment on above: Performed By: #### E RUR, PREGU, UMICRO #### [facility] [address] [address] [address] Milind De Paz Hemoglobin Ql (U) MODERATE Abnormal NEGATIVE [facility] Comment on above: Performed By: #### E RUR, PREGU, UMICRO #### [facility] [address] [address] [address] Milind De Paz Ketones Ql (U) TRACE Abnormal NEGATIVE [facility] Comment on above: Performed By: #### E RUR, PREGU, UMICRO #### [facility] [address] [address] [address] Milind De Paz LEUKOCYTES Negative Normal NEGATIVE [facility] Comment on above: Performed By: #### E RUR, PREGU, UMICRO #### [facility] [address] [address] [address] Milind De Paz Nitrite Ql (U) Negative Normal NEGATIVE [facility] Comment on above: Performed By: #### E RUR, PREGU, UMICRO #### [facility] [address] [address] [address] Milind De Paz pH (U) 6.0 [pH] Normal 5-9 [facility] Comment on above: Performed By: #### E RUR, PREGU, UMICRO #### [facility] [address] [address] [address] Milind De Paz SPEC GRAVITY 1.025 Normal 1.005-<=1.025 [facility] Comment on above: Performed By: #### E RUR, PREGU, UMICRO #### [facility] [address] [address] [address] Milind De Paz UA PROTEIN Negative Normal NEGATIVE/ TRACE [facility] Comment on above: Performed By: #### E RUR, PREGU, UMICRO #### [facility] [address] [address] [address] Milind De Paz UR MICRO IND INDICATED Normal [facility] Comment on above: Performed By: #### E RUR, PREGU, UMICRO #### [facility] [address] [place] [address] Dr. Milind De Paz Urobilinogen Qn (U) 0.2 {Lilia'U}/dL Normal 0.2 - 1.0 [facility] Comment on above: Performed By: #### E RUR, PREGU, UMICRO #### [facility] [address] [place] [address] Dr. Milind De Paz PREG QUANT HCGon 02-09-2021 HCG QUANT <[address] [facility] Comment on above: Performed By: #### B UN, CREA #### [facility] [address] [place] [address] Dr. Milind De Paz HCG RANGE SEE BELOW Normal [facility] Comment on above: Result Comment: 5-50 0-1 WEEK 40-300 1-2 WEEKS 100-1,000 2-3 WEEKS 500-6,000 3-4 WEEKS 5,000-200,000 1-2 MONTHS 10,000-100,000 2-3 MONTHS 3,000-50,000 2ND TRIMESTER 1,000-50,000 3RD TRIMESTER Performed By: #### B UN, CREA #### [facility] [address] [place] [address] Dr. Milind De Paz URon 02-09-2021 , QUAL Negative Normal NEGATIVE [facility] Comment on above: Performed By: #### E RUR, PREGU, UMICRO #### [facility] [address] [place] [address] Dr. Milind De Paz PROF CHEM 8 (BAS METB)on Anion gap [Moles/Vol] 10.9 mmol/L Normal [facility] Comment on above: Performed By: #### B MP #### [facility] [address] [place] [address] Dr. Milind De Paz Calcium [Mass/Vol] 9.1 mg/dL Normal 8.4-10.2 [facility] Comment on above: Performed By: #### B MP #### [facility] [address] [address] [address] Milind De Paz Chloride [Moles/Vol] 102 mmol/L Normal 98-[address] [facility] Comment on above: Performed By: #### B MP #### [facility] [address] [address] [address] Milind De Paz CO2 [Moles/Vol] 29.7 mmol/L Normal 22.0-30.0 [facility] Comment on above: Performed By: #### B MP #### [facility] [address] [place] [address] Dr. Milind De Paz Creatinine [Mass/Vol] 0.81 mg/dL Normal 0.52-1.[address] [facility] Comment on above: Performed By: #### B MP #### [facility] [address] [address] [address] Milind De Paz EGFR-AF THAI >60 Normal >=60 [facility] Comment on above: Performed By: #### B MP #### [facility] [address] [address] [address] Milind De Paz EGFR-NON AF THAI >60 Normal >=[address] [facility] Comment on above: Performed By: #### B MP #### [facility] [address] [address] [address] Milind De Paz Glucose [Mass/Vol] 89 mg/dL Normal 74-106 [facility] Comment on above: Performed By: #### B MP #### [facility] [address] [address] [address] Milind De Paz Potassium [Moles/Vol] 3.6 mmol/L Normal 3.4-5.[address] [facility] Comment on above: Performed By: #### B MP #### [facility] [address] [address] [address] Milind De Paz Sodium [Moles/Vol] 139 mmol/L Normal 137-145 [facility] Comment on above: Performed By: #### B MP #### [facility] [address] [address] [address] Milind De Paz Urea nitrogen [Mass/Vol] 16.0 mg/dL Normal 7.0-17.0 [facility] Comment on above: Performed By: #### B MP #### [facility] [address] [address] [address] Milind De Paz Urea nitrogen/Creatinin e [Mass ratio] 19.8 mg/mg Normal [facility] Comment on above: Performed By: #### B MP #### [facility] [address] [address] [address] Milind De Paz URINE MICROSCOPIC ONLYon BACTERIA TRACE Abnormal NONE SEEN [facility] Comment on above: Performed By: #### E RUR, PREGU, UMICRO #### [facility] [address] [place] [address] Dr. Milind De Paz Bacteria identified Cx Nom (U) NOT INDICATED Normal [facility] Comment on above: Performed By: #### E RUR, PREGU, UMICRO #### [facility] [address] [place] [address] Dr. Milind De Paz CAST NONE SEEN Normal NONE SEEN [facility] Comment on above: Performed By: #### E RUR, PREGU, UMICRO #### [facility] [address] [address] [address] Milind De Paz Crystals LM Nom (Urine sed) NONE SEEN Normal NONE SEEN [facility] Comment on above: Performed By: #### E RUR, PREGU, UMICRO #### [facility] [address] [address] [address] Milind De Paz Epithelial cells LM Ql (Urine sed) FEW Abnormal NONE SEEN /RARE [facility] Comment on above: Performed By: #### E RUR, PREGU, UMICRO #### [facility] [address] [place] [address] Dr. Milind De Paz MUCOUS SMALL Abnormal NONE SEEN [facility] Comment on above: Performed By: #### E RUR PREGU UMICRO #### [facility] [address] [address] [address] Milind De Paz RBC 0-2 Normal 0-[address] [facility] Comment on above: Performed By: #### E RUR PREGU, UMICRO #### [facility] [address] [address] [address] Milind De Paz WBC 0-2 Abnormal NONE SEEN [facility] Comment on above: Performed By: #### E RUR PREGU, UMICRO #### [facility] [address] [address] [address] Milind De Paz WET PREPon 02-09-2021 CLUE CELLS NONE SEEN Normal NONE SEEN [facility] Comment on above: Performed By: #### W P #### [facility] [address] [place] [address] Dr. Milind De Paz FUNGAL ELEMENTS NONE SEEN Normal NONE SEEN [facility] Comment on above: Performed By: #### W P #### [facility] [address] [place] [address] Dr. Milind De Paz RBC -WET PREP MODERATE Abnormal NONE SEEN [facility] Comment on above: Performed By: #### W P #### [facility] [address] [place] [address] Dr. Milind De Paz TRICHOMONAS NONE SEEN Normal NONE SEEN [facility] Comment on above: Performed By: #### W P #### [facility] [address] [place] [address] Dr. Milind De Paz WBC- WET PREP FEW Abnormal NONE SEEN [facility] Comment on above: Performed By: #### W P #### [facility] [address] [place] [address] Dr. Milind De Paz WET PREP BACTERIA FEW Abnormal NONE SEEN [facility] Comment on above: Performed By: #### W P #### [facility] [address] [place] [address] Dr. Milind De Paz Operative Reporton 1 Operative Report MR#: [id number] [facility] Pt. Name: Sandee Rodriguez Room #: 0C [...] femoral vein. Micro sheath was inserted then 6-Uzbek sheath. After that, a C1 catheter was placed in the inferior vena cava venogram was done followed by catheterization of the left renal vein and then the left gonadal vein. A venogram was done for the left side. After that a wire was placed in the catheter and then the sheath and the C1 catheter were exchanged to a 6-Uzbek Mao sheath with the tip of the [...] were pulled out and exchanged to a 6-Uzbek sheath in the right groin. Multiple attempts [...] Cantu M.D. Date Trans: 09/18/2020 02:59 A/rajat [id number] Normal [facility] *MRSA/MSSA DNA NASALon 09-17 *MRSA/MSSA DNA NASAL Clinical Report: (D) Specimen: NASAL SWAB Collected: 09/17/2020 10:30 Status: Final Last Updated: 09/17/2020 13:56 MSSA DNA (Final) Methicillin Susceptible Staphylococcus aureus DNA Detected MRSA DNA (Final) Negative Normal [facility] Comment on above: Performed By: #### [id number] #### [facility] [address] [place] [address], [facility] APTTon 09-17-2020 aPTT Coag (Bld) [Time] 34.0 s Normal 25.0-35.0 [facility] Comment on above: Result Comment: ALL RESULTS [...] THIS PURPOSE. Performed By: #### [id number] #### [facility] [address] [place] [address], [facility] BASIC METABOLIC PANELon 09-06 Calcium [Mass/Vol] 9.3 mg/dL Normal 8.6-10.3 [facility] Comment on above: Performed By: #### 0 [id number] #### [facility] [address] [place] [address], [facility] Chloride [Moles/Vol] 103 mmol/L Normal 98-107 [facility] Comment on above: Performed By: #### 0 [id number] #### [facility] [address] [place] [address], [place] CO2 [Moles/Vol] 26 mmol/L Normal 21-31 [facility] Comment on above: Performed By: #### 0 [id number] #### [facility] [address] [place] [address], [facility] Creatinine [Mass/Vol] 0.74 mg/dL Normal 0.60-1.20 [facility] Comment on above: Performed By: #### 0 [id number] #### [facility] [address] [place] [address], [facility] GFR/1.73 sq M.predicted among blacks MDRD (S/P/Bld) [Vol rate/Area] mL/min/{1.73_m2} Normal >60 [facility] Comment on above: Performed By: #### 0 [id number] #### [facility] [address] [place] [address], [facility] GFR/1.73 sq M.predicted among non-blacks MDRD (S/P/Bld) [Vol rate/Area] mL/min/{1.73_m2} Normal >60 [facility] Comment on above: Performed By: #### 0 [id number] #### [facility] [address] [place] [address], [facility] Glucose [Mass/Vol] 115 mg/dL High 70-100 [facility] Comment on above: Performed By: #### 0 0071 #### [facility] [address] Potassium [Moles/Vol] 3.8 mmol/L Normal 3.5-5.1 The [facility] Comment on above: Performed By: #### 0 0071 #### [facility] [address] [place] [address], [facility] Sodium [Moles/Vol] 136 mmol/L Normal 136-145 The [facility] Comment on above: Performed By: #### 0 0071 #### [facility] [address] [place] [address], [facility] Urea nitrogen [Mass/Vol] 11 mg/dL Normal 7-25 The [facility] Comment on above: Performed By: #### 0 0071 #### [facility] [address] [place] [address], [facility] CBC W/DIFFon 09-17-2020 ABS IMM GRANS 0.0 10*3/uL Normal 0.0-0.2 The [facility] Comment on above: Performed By: #### 5 0103 #### [facility] [address] [place] [address], [facility] ABS NEUTROPHILS 8.6 10*3/uL High 1.6-7.6 The [facility] Comment on above: Performed By: #### 5 0103 #### [facility] [address] [place] [address], [facility] Basophils (Bld) [#/Vol] 0.1 10*3/uL Normal 0.0-0.2 The [facility] Comment on above: Performed By: #### 5 0103 #### [facility] [address] [facility] [place] [address], [facility] Basophils/100 WBC (Bld) 0.6 % Normal 0.0-1.0 The [facility] Comment on above: Performed By: #### 5 0103 #### [facility] [address] [facility] [place] [address], [facility] Eosinophils (Bld) [#/Vol] 0.0 10*3/uL Normal 0.0-0.5 The [facility] Comment on above: Performed By: #### 5 0103 #### [facility] [address] [facility] [place] [address], [facility] Eosinophils/100 WBC (Bld) 0.3 % Normal 0.0-6.0 The [facility] Comment on above: Performed By: #### 5 0103 #### [facility] [address] [facility] [place] [address], [facility] Erythrocyte distribution width (RBC) [Ratio] 11.9 % Normal 11.5-15.0 The [facility] Comment on above: Performed By: #### 5 0103 #### [facility] [address] [facility] [place] [address], [facility] Hematocrit (Bld) [Volume fraction] 39.5 % Normal 36.0-45.0 The [facility] Comment on above: Performed By: #### 5 3 #### [facility] [address] [facility] [place] [address], [facility] Hemoglobin (Bld) [Mass/Vol] 13.2 g/dL Normal 12.0-15.0 The [facility] Comment on above: Performed By: #### 5 0103 #### [facility] [address] [facility] [place] [address], [facility] IMMATURE GRANS 0.4 % Normal 0.0-1.0 [facility] Comment on above: Performed By: #### 5 0103 #### [facility] [address] [place] [address], [facility] Lymphocytes (Bld) [#/Vol] 1.5 10*3/uL Normal 1.2-4.0 The [facility] Comment on above: Performed By: #### 5 3 #### [facility] [address] [place] [address], [facility] Lymphocytes/100 WBC (Bld) 13.5 % Low 20.0-45.0 The [facility] Comment on above: Performed By: #### 5 3 #### [facility] [address] [place] [address], [facility] MCH (RBC) [Entitic mass] 30.6 pg Normal 27.0-33.0 The [facility] Comment on above: Performed By: #### 5 0103 #### [facility] [address] [facility] [place] [address], [facility] MCHC (RBC) [Mass/Vol] 33.4 g/dL Normal 32.0-35.0 The [facility] Comment on above: Performed By: #### 5 0103 #### [facility] [address] [place] [address], [facility] MCV (RBC) [Entitic vol] 91.6 fL Normal 82.0-98.0 The [facility] Comment on above: Performed By: #### 5 3 #### [facility] [address] [place] [address], [facility] Monocytes (Bld) [#/Vol] 0.6 10*3/uL Normal 0.1-1.0 [facility] Comment on above: Performed By: #### 5 0103 #### [facility] [address] [place] [address], [place] MONOS 5.8 % Normal 5.0-12.0 [facility] Comment on above: Performed By: #### 5 0103 #### [facility] [address] [place] [address], [facility] Neutrophils/100 WBC (Bld) 79.4 % High 40.0-72.0 The [facility] Comment on above: Performed By: #### 102 #### [facility] [address] [place] [address], [facility] Nucleated RBC/100 WBC (Bld) [Ratio] 0 % Normal 0-0 The [facility] Comment on above: Performed By: #### 5 010 #### [facility] [address] [facility] [place] [address], [facility] PLAT CNT 262 10*3/uL Normal 150-400 [facility] Comment on above: Performed By: #### 5 102 #### [facility] [address] [place] [address], [facility] RBC (Bld) [#/Vol] 4.31 10*6/uL Normal 3.80-5.00 The [facility] Comment on above: Performed By: #### 3 #### [facility] [address] [facility] [place] [address], [facility] WBC (Bld) [#/Vol] 10.79 10*3/uL High 4.00-10.60 The [facility] Comment on above: Performed By: #### 102 #### [facility] [address] [place] [address], [facility] POC GLUCOSE LABon 07-12-2021 Glucose [Mass/Vol] 111 mg/dL High 70-100 [facility] Comment on above: Performed By: #### 8 5499 #### [facility] [address] [facility]. [address] POC SARS COV2 ANTIGEN NEGATI VEon 09-17-2020 POC SARS COV2 ANTIGEN NEG Negative Normal NEGATIVE The [facility] Comment on above: Result Comment: Nega tive [...] signs and symptoms consistent with COVID-19. The [facility] COVID-19 Ag Card is a lateral flow [...] Accreditation. Performed By: #### 3 1976 #### [facility] [address] [facility]. [address] POC URINE PREGNANCYon 2020 Beta HCG ( test) Ql (U) Negative Normal NEGATIVE The [facility] Comment on above: Result Comment: Perf ormed in PACU Performed By: #### 8 4140 #### [facility] [address] [facility]. [address] PROTHROMBIN TIMEon INR Coag (PPP) [Relative time] 0.98 {INR} Normal 0.91-1.16 [facility] Comment on above: Result Comment: ACCC P [...] CHEST 1995;108:[id number]-246S. Performed By: #### 5 7307, [id number] #### [facility] [address] [place] [address], [facility] PT Coag (PPP) [Time] 13.0 s Normal 12.3-14.8 The [facility] Comment on above: Result Comment: ALL RESULTS MUST BE INTERPRETED WITH RESPECT TO BLOOD DRAWING ARTIFACT OR DILUTION ERROR OF ANTICOAGULANT AT THE TIME OF SAMPLING. Performed By: #### 5 7307, [id number] #### [facility] [address] [place] [address], [facility] Vital Signs Date Time Vital Sign Value Performing Clinician Facility 09-06-2024 09:55-0400 Body height 162.56 cm Sandee Watters APRN Work Phone: [facility] 09-06-2024 09:55-0400 Body mass index (BMI) [Ratio] 23 kg/m2 Sandee Watters APRN Work Phone: [facility] 09-06-2024 09:55-0400 Body temperature 98.7 [degF] Sandee Watters APRN Work Phone: [facility] 09-06-2024 09:55-0400 Body weight 60.78 kg Sandee Watters APRN Work Phone: [facility] 09-06-2024 09:55-0400 Diastolic blood pressure 62 mm[Hg] Sandee Watters APRN Work Phone: [facility] 09-06-2024 09:55-0400 Heart rate 84 /min Sandee Watters APRN Work Phone: [facility] 09-06-2024 09:55-0400 SaO2% (BldA) [Mass fraction] 98 % Sandee Watters APRN Work Phone: [facility] 09-06-2024 09:55-0400 Systolic blood pressure 116 mm[Hg] Sandee Watters APRN Work Phone: [facility] 02-25-2024 10:28-0500 Body mass index (BMI) [Ratio] 22.62 kg/m2 Magda AGUILAR Work Phone: [facility] 02-25-2024 10:28-0500 Body weight 61.29 kg Magda AGUILAR Work Phone: [facility] 02-25-2024 10:28-0500 Diastolic blood pressure 68 mm[Hg] Magda AGUILAR Work Phone: [facility] 02-25-2024 10:28-0500 Systolic blood pressure 120 mm[Hg] Magda AGUILAR Work Phone: [facility] Healthcare Encounters Encounter Date Encounter Type Care Provider Facility Start: 09-06-2024 End: 09-06-2024 ambulatory Sandee Watters APRN Work Phone: [facility] Work Phone: Start: 09-06-2024 End: 09-06-2024 Patient encounter procedure Sandee Watters APRN [facility] Work Phone: Start: 09-06-2024 End: 09-06-2024 Patient encounter status Sandee Watters APRN [facility] Start: 02-25-2024 End: 02-25-2024 Bamboo flowsheet Magda AGUILAR Work Phone: [facility] Start: 02-25-2024 End: 03-04-2024 Bamboo flowsheet Magda AGUILAR Work Phone: [facility] Start: 02-25-2024 End: 03-04-2024 Clinisync Result Encounter Magda AGUIALR Work Phone: [facility] Unsolicited Start: 02-25-2024 End: 02-25-2024 Patient encounter procedure Magda AGUILAR Work Phone: [facility] Work Phone: Start: 02-25-2024 End: 02-25-2024 Patient encounter status Magda AGUILAR Work Phone: [facility] Start: 02-25-2024 End: 02-25-2024 Periodic preventive med est patient 40-64yrs Magda AGUILAR Work Phone: [facility] Comment on above: Well woman exam with routine gynecological exam; Breast cancer screening by mammogram; Cervicitis; Routine lab draw Start: 02-25-2024 End: 02-25-2024 ambulatory MAGDA HENDERSON Not Available Start: 12-11-[address] CIARA KOCH Facility :[facility] Start: 12-03-2021 End: 12-04-[address] JAZZY CERRATO Facility:[facility] Start: 06-07-2021 Encounter for preprocedural laboratory examination DR CIARA KOCH [facility] Start: 06-07-2021 End: 06-09-2021 Evaluation and management of inpatient DR DOCTOR AMADOR Facility:[facility] Start: 06-04-2021 End: 06-05-[address] DOCTOR AMADOR Facility:[facility] Start: 06-04-2021 End: 06-05-2021 Encounter for preprocedural laboratory examination DR DOCTOR AMADOR Facility:[facility] Start: 06-03-2021 End: 06-03-[address] CIARA KOCH Facility:[facility] Start: 05-31-2021 Encounter for other preprocedural examination DR CIARA KOCH [facility] Start: 05-27-2021 End: 05-28-[address] CIARA KOCH Facility:[facility] Start: 05-27-2021 End: 05-28-2021 Encounter for other preprocedural examination DR CIARA KOCH Facility:[facility] Start: 02-09-2021 End: 02-09-2021 ambulatory MEREDITH MALDONADO Facility:[facility] Start: 09-17-2020 End: 09-18-2020 ambulatory MAGED CANTU Facility:[facility] Procedures Date Procedure Procedure Detail Performing Clinician Start: 02-25-2024 IGP,APTIMA HPV,AGE GDLN Magda AGUILAR Work Phone: Start: 10-17-2022 Cytp cerv/vag auto thin layer prep mnl screen Ciara Koch DO Work Phone: Start: 09-11-2022 H/O: hysterectomy Status post hysterectomy Magda AGUILAR Work Phone: Start: 06-07-2021 Removal of Contraceptive Device from Upper Extremity Subcutaneous Tissue and Fascia, Percutaneous Approach MEREDITH MALDONADO Start: 06-07-2021 Resection of Bilateral Fallopian Tubes, Open Approach MEREDITH MALDONADO Start: 06-07-2021 Resection of Uterus, Open Approach MEREDITH MALDONADO Start: 09-17-2020 ANES TX INTERV RAD CRAN VEIN [facility] Start: 09-17-2020 PLACE CATHETER IN VEIN [facility] Start: 09-17-2020 VASC EMBOLIZE/OCCLUDE VENOUS [facility] Plan of Treatment Date Care Activity Detail Author Start: 02-25-2024 End: 04-27-2025 MG Breast - bilateral Screening Bilateral screening mammogram Imaging Routine Breast cancer screening by mammogram Expected: 02/25/2024 (Approximate), Expires: 04/27/2025 [facility] [employer] Work Phone: Comment on above: Expected: 02/25/2024 (Approximate), Expires: 04/27/2025 Start: 02-25-2024 End: 02-25-2024 Patient encounter procedure 02/25/2024 10:00 AM EST Office Visit [facility] [address] [place] [address] Magda Henderson PA [address] [place] [address] Arrived [facility] Comment on above: Arrived CBC W Auto Different ial panel - Blood CBC auto differential Lab Routine Routine lab draw Ordered: 02/25/2024 [facility] Comment on above: Ordered: 02/25/2024 Cholesterol [Mass/volume] in Serum or Plasma Cholesterol, total Lab Routine Routine lab draw Ordered: 02/25/2024 [facility] Comment on above: Ordered: 02/25/2024 Comprehensive metabo lic 2000 panel - Serum or Plasma Comprehensive metabolic panel Lab Routine Routine lab draw Ordered: 02/25/2024 [facility] Comment on above: Ordered: 02/25/2024 Comprehensive metabo lic 2000 panel - Serum or Plasma [facility] Hemoglobin A1c/Hemoglobin.total in Blood Hemoglobin A1c Lab Routine Routine lab draw Ordered: 02/25/2024 [facility] Comment on above: Ordered: 02/25/2024 THIN PREP TIS PAP AN D HR HPV DNA THIN PREP TIS PAP AND HR HPV DNA Pathology and Cytology Routine Well woman exam with routine gynecological exam Ordered: 02/25/2024 [facility] Comment on above: Ordered: 02/25/2024 Thyrotropin [Units/volume] in Serum or Plasma TSH Lab Routine Routine lab draw Ordered: 02/25/2024 [facility] Comment on above: Ordered: 02/25/2024 [facility] Payers Date Payer Category Payer Private Health Insurance [employer] [id number] 2023 Unknown [id number] 1981 Unknown [id number] 647 1981 Unknown [id number] 593 1981 Unknown [id number]. 593 1981 Unknown [id number]. 593 1981 Unknown [id number]. 593 1981 Unknown [id number]. 593 1981 Unknown [id number]. 593 1981 Unknown [id number] [id number]. 593 1981 Unknown [id number]. 1259 1959 Self-pay [id number] 1958 Unknown [id number] Unknown Ariel BC/BS [id number] Unknown [id number] Social History Date Type Detail Facility Start: 09-14-2022 End: 09-06-2024 Tobacco smoking status IDIS Never smoked tobacco [facility] Start: 09-14-2022 Tobacco use and exposure Smokeless tobacco non-user [facility] Start: 02-10-2023 End: 02-25-2024 Alcoholic beverage intake Lifetime non-drinker (finding) [facility] Start: 02-10-2023 End: 02-25-2024 History of Social function [facility] Start: 02-10-2023 End: 02-25-2024 Tobacco use panel [facility] Start: 1980 Sex assigned at Not on file [facility] Sex Female (finding) [facility] Start: 1980 Sex Assigned At Female F [facility] History of Present illness Narrative 02-25-2024 JEFF Smith - 02/25/2024 10:00 AM EST Note Date & Type Note Facility 02-25-2024 History of Presen t illness Narrative Reason for Appointment: Patient ID: Sandee Rodriguez is a 43 y.o. female who presents for Well Women Visit Patient presents today for Annual Exam. MEDICATIONS Current Outpatient Medications Medication Instructions ascorbic acid (Vitamin C) 100 MG chewable tablet Vitamin C estradiol (ESTRACE) 0.5 mg, Oral, Every morning ALLERGIES No Known Allergies PROBLEMS Active Ambulatory Problems Diagnosis Date Noted Alopecia 09/11/2022 Anemia 09/11/2022 Bleeding after intercourse 09/11/2022 Emotional lability 09/11/2022 Female pelvic congestion syndrome 09/11/2022 Headache 09/11/2022 Hormone imbalance 09/11/2022 Hot flashes 09/11/2022 Status post hysterectomy 09/11/2022 Resolved Ambulatory Problems Diagnosis Date Noted No Resolved Ambulatory Problems Past Medical History: Diagnosis Date BMI 21.0-21.9, adult Follow-up exam H/O abdominal hysterectomy Hair loss Mood changes HISTORY PAST MEDICAL HISTORY SOCIAL HISTORY Past Medical History: Diagnosis Date Anemia Bleeding after intercourse BMI 21.0-21.9, adult Female pelvic congestion syndrome Follow-up exam H/O abdominal hysterectomy Hair loss Headache Hormone imbalance Hot flashes Mood changes Social History Tobacco Use Smoking status: Never Smokeless tobacco: Never Substance Use Topics Alcohol use: Never Drug use: Never FAMILY HISTORY Family History Problem Relation Name Age of Onset Cancer Other Diabetes Other Cancer Sibling SURGICAL HISTORY Past Surgical History: Procedure Laterality Date SECTION, LOW TRANSVERSE EMBOLIZATION 09/2020 Uterine coil EYE SURGERY Left HYSTERECTOMY 06/07/2021 REVIEW OF SYSTEMS Review of Systems: Review of Systems Constitutional: Negative. HENT: Negative. Eyes: Negative. Respiratory: Negative. Cardiovascular: Negative. Gastrointestinal: Negative. Genitourinary: Negative. Musculoskeletal: Negative. Skin: Negative. Neurological: Negative. All other systems reviewed and are negative. Hematological: Negative. Endocrine: Negative. Allergic/Immunologic: Negative. OBJECTIVE Objective: Physical Exam Constitutional: Appearance: Normal appearance. She is well-developed. Genitourinary: Vulva normal. Right Adnexa: not tender and no mass present. Left Adnexa: not tender and no mass present. No cervical discharge. Breasts: Breasts are soft. Right: Normal. Left: Normal. HENT: Head: Normocephalic. Nose: Nose normal. Mouth/Throat: Mouth: Mucous membranes are moist. Cardiovascular: Rate and Rhythm: Normal rate and regular rhythm. Pulmonary: Effort: Pulmonary effort is normal. Breath sounds: Normal breath sounds. Abdominal: General: Bowel sounds are normal. There is no distension. Palpations: Abdomen is soft. Tenderness: There is no abdominal tenderness. There is no guarding or rebound. Musculoskeletal: General: No swelling. Normal range of motion. Cervical back: Normal range of motion. Right lower leg: No edema. Left lower leg: No edema. Neurological: General: No focal deficit present. Mental Status: She is alert and oriented to person, place, and time. Skin: General: Skin is warm and dry. Psychiatric: Mood and Affect: Mood normal. Behavior: Behavior normal. Vitals and nursing note reviewed. Exam conducted with a area director present. Vitals: Estimated body mass index is 22.62 kg/m as calculated from the following: Height as of 09/16/22: 5' 4.8 . Weight as of this encounter: 135 lb 1.9 oz. BP: 120/68 No LMP recorded. Patient has had a hysterectomy. ASSESSMENT & PLAN ICD-10-CM 1. Well woman exam with routine gynecological exam Z01.419 THIN PREP TIS PAP AND HR HPV DNA 2. Breast cancer screening by mammogram Z12.31 Bilateral screening mammogram Bilateral screening mammogram Annual Exam: Patient presents today for an annual exam. Patient states she is doing well and has no complaints. Pap was obtained without difficulty. Orders Placed This Encounter Procedures Bilateral screening mammogram Follow Up: Patient is to return in one year for annual unless needed otherwise. Documented by Carol Bryant LPN on behalf of: JEFF Smith documented in this encounter [facility] Discharge summary note 06-07-2021 Note Date & [...] pain free and no longer on narcotics. [facility] Signed and Approved by: DR CIARA KOCH . 07/07/2021 18:32:[address] [facility] Clinical Note 06-07-2021 Note Date & [...] Band-Aid. The Nexplanon procedure was completed. [facility] Clinical Note 06-07-2021 Note Date & [...] a Band-Aid. The Nexplanon procedure was completed. [facility] Signed and Approved by: DR CIARA KOCH . 07/07/2021 18:32:[address] [facility] Clinical Note 06-07-2021 Note Date & Type Note Facility 06-07-2021 Note [facility] [place], [place] NAME: SANDEE RODRIGUEZ DATE OF : MEDICAL REC#: [id number] MARINE CARGO SURVEYOR: [address] [facility], TRANSADMIT DATE: 06/07/2021 09:58:00 POST DOCTORAL RESEARCHER DATE: 06/09/2021 23:00 DICTATING PHYSICIAN: CIARA KOCH DICTATION DATE: 06/07/2021 14:00 OPERATIVE NOTE PROCEDURE: Total abdominal hysterectomy with bilateral salpingectomy with cystoscopy. PREOPERATIVE DIAGNOSIS: 1. Abnormal uterine bleeding. 2. Dysmenorrhea. 3. Dyspareunia. POSTOPERATIVE DIAGNOSIS: 1. Abnormal uterine bleeding. 2. Dysmenorrhea. 3. Dyspareunia. ANESTHESIA: General. SURGEON: Ciara Koch D.O. MANAGER DIVERSITY: URIEL Byrd URINE OUTPUT: Yellow and clear. [...] Koch DO on 06/25/2021 10:16 PM EDT [facility] Signed and Approved by: DR CIARA KOCH . 06/25/2021 22:16:00 [facility] Evaluation note Note Date & Type Note Facility Evaluation note Diagnosis Well woman exam with routine gynecological exam Routine gynecological examination Breast cancer screening by mammogram Cervicitis Cervicitis and endocervicitis Routine lab draw documented in this encounter [facility] Evaluation note Note Date & Type Note Facility Evaluation note Diagnosis Onset Date Resolution Cellulitis of finger, right acute September 06, 2024 9 :52am Screening for lipid disorders acute September 06, 2024 9 :52am Screening for metabolic disorder acute September 06, 2024 9 :52am Screening, deficiency anemia, iron acute September 06, 2024 9 :52am Wellness examination acute September 06, 2024 9:52am [facility] Work Phone: Reason for referral (narrative) Note Date & Type Note Facility Reason for referral (narrative) No reason for referral information available [facility] Work Phone: Summary Purpose Family History Relationship Condition Age at Onset Recorded Date/T hemalatha father Atrial fibrillation Unknown Rheumatoid arthritis Unknown mother Obesity Unknown Advance Directives Advance Directive Response Recorded Date/ Time Advance Directives No August 25 2:41pm Chief Complaint and Reason for Visit Chief Complaint Admit Date establish care September 06, 2024 9:52a m Reason for Visit Admit Date Cellulitis of finger, right September 06 9:52am Screening for lipid disorders September 06, 2024 9:52am Screening for metabolic disorder September 9:52am Screening, deficiency anemia, iron September 06, 2024 9:52am Wellness examination September 06, 2024 9:52 am Additional Source Comments INFORMATION SOURCE (unrecogn ized section and content) DATE CREATED AUTHOR 10/25/2020 [facility] DATE CREATED AUTHOR AUTHOR'S ORGANIZ ATION 12/12/2021 [facility] DATE CREATED AUTHOR AUTHOR'S ORGANIZ ATION 02/28/2024 [facility] d[facility] Specialists EPIC Reason for Visit (unrecogniz ed section and content) Reason Comments Well Women Visit Care Teams (unrecognized sec tion and content) Team Status: Active Member Role Status Dates ROSIE Chauhan Primary Care Provider Active Team Status: Inactive Member Role Status Dates Sandee Watters APRN [employer] Primary Care Provider Active Start: September 06, 2024 End: September 06, 2024 ROSIE Chauhan Attending Provider Act asad Start: September 06, 2024 End: September 06, 2024 Goals (unrecognized section and content) Goals may be documented in a n alternate section FOR RECORDS PERTAINING TO PATIENTS WHO ARE [...] BE BASED ON THE PRIMARY CLINICAL RECORDS. [facility] [email or web address] [phone] no warranty or guarantee [id number] the accuracy [phone] completeness of information in this [id number]
[2024-11-09 10:21] LABS: Alanine Aminotransferase 48 U/L (14-59); Albumin Globulin Ratio 1.0; Albumin Level 3.8 g/dL (3.4-5.0); Alkaline Phosphatase 53 U/L (46-116); Anion Gap 12.4; Aspartate Amino Transferase 30 U/L (15-37); Blood Urea Nitrogen 17.0 mg/dL (7.0-18.0); Calcium 8.9 mg/dL (8.5-10.1); Carbon Dioxide 28.2 mmol/L (21.0-32.0); Chloride 105 mmol/L (98-107); Cholesterol 216 mg/dL (<=200); Estimated GFR (African America >60 (>=60 mL/min/1.73m^2); Estimated GFR (Non-African Ame >60 (>=60 mL/min/1.73m^2); Globulin 3.9 g/dL; Glucose 102 mg/dL (74-106); HDL Cholesterol 72 mg/dL (40-60); Potassium 4.6 mmol/L (3.5-5.1); Sodium 141 mmol/L (136-145); Total Protein 7.7 g/dL (6.4-8.2); Triglycerides 41 mg/dL (<=150); VLDL CHOLESTEROL 8.2 mg/dL
[2024-11-09 10:49] LABS: Hematocrit 38.4 % (36.0-48.0); Hemoglobin 12.9 g/dL (12.0-16.0); Immature Granulocytes Abs Auto 0.02 10^3/uL (0.00-0.03); Immature Granulocytes Pct Auto 0.3 % (0.0-0.5); Lymphocytes Absolute Auto 1.9 10^3/uL (1.2-3.8); Mean Corpuscular HGB Conc 33.6 g/dL (29.9-35.2); Mean Corpuscular Hemoglobin 30.5 pg (26.7-34.0); Mean Corpuscular Volume 90.8 fL (81.0-99.0); Platelet Count 253 10^3/uL (150-450); Red Blood Count 4.23 10^6/uL (4.20-5.40); White Blood Count 5.9 10^3/uL (4.0-11.0)
== END 2024-11-09 09:05 | disposition home or self-care (01) ==
LOC: LAB 09:08
PROVIDERS: PCP Nurse Practitioner Family; Visit Provider Nurse Practitioner Family
DX: Z00.00 Encounter for general adult medical examination without abnormal findings (principal); Z13.220 Encounter for screening for lipoid disorders; Z13.228 Encounter for screening for other metabolic disorders; Z13.0 Encounter for screening for diseases of the blood and blood-forming organs and certain disorders involving the immune mechanism
CPT/HCPCS: 36415; 80053; 80061; 85025